=== PATIENT | male | born 1960 | race Caucasian/White ===

== ENCOUNTER → 2016-09-03 | Outpatient (CLI) | payer MEDICAID, OTHER ==
--- NOTE | 2016-09-03 13:19 | PFTRPT ---
PULMONARY FUNCTION REPORT ORDERING PROVIDER: Justino Hood M.D. DATE OF SERVICE: 09/03/16 SPIROMETRY: Pre and post bronchodilator study of excellent technical quality. The forced vital capacity is reduced. The FEV1 is out of proportion. The obstructive index is, therefore, reduced. FLOW VOLUME LOOP: The expiratory limb of the flow volume loop is consistent with significant flow rate limitation. No additional bronchodilator response is identified. LUNG VOLUMES: The total lung capacity is markedly elevated. The residual volume is consistent with air trapping. DIFFUSION CAPACITY: The diffusion capacity is severely reduced and does not correct for alveolar volume. HEMOGLOBIN: The hemoglobin is acceptable at 16.4. AIRWAY MECHANICS: Airways resistance is markedly elevated with a concomitant decrease in airway conductance. IMPRESSION: Severe obstructive ventilatory impairment with underlying air trapping and emphysema is suspected. Please correlate clinically. MTDD
== END ==
LOC: M CARPUL 12:36
PROVIDERS: ATTEND Internal Medicine Pulmonary Disease
DX: J44.9 Chronic obstructive pulmonary disease, unspecified (principal)

== ENCOUNTER → 2016-10-14 | Outpatient (REF) | payer OTHER | LOC: M LAB REF 17:13 | PROVIDERS: ATTEND Nurse Practitioner Adult Health | DX: J44.9 Chronic obstructive pulmonary disease, unspecified (principal) ==

== ENCOUNTER → 2016-10-30 | Outpatient (REF) | payer OTHER | LOC: M LAB REF 12:57 | PROVIDERS: ATTEND Nurse Practitioner Adult Health | DX: J44.1 Chronic obstructive pulmonary disease with (acute) exacerbation (principal) ==

== ENCOUNTER → 2017-04-16 | Outpatient (CLI) | payer OTHER ==
--- NOTE | 2017-04-16 10:29 | REP ---
CAROTID ULTRASOUND: Real-time ultrasound evaluation and duplex Doppler interrogation of the extracranial carotid vasculature is performed. There is mild plaquing and narrowing in both carotid bulbs extending into the internal and external carotid arteries. Luminal narrowing is less than 50%. There is no evidence of hemodynamically significant stenosis of either internal carotid artery. Normal flow velocities are seen. The vertebral arteries demonstrate normal direction of flow. RIGHT LEFT Peak systolic velocity ICA 81 cm/s 39 cm/s End diastolic velocity ICA 26.4 cm/s 26.9 cm/s Peak systolic velocity CCA 89.7 cm/s 111.4 cm/s Peak systolic velocity ECA 95 cm/s 59.8 cm/s ICA/CCA ratio 0.9 0.4 IMPRESSION: Bilateral luminal narrowing of the internal carotid arteries less than 50%. No evidence of hemodynamically significant stenosis. Signed by Bhavik Vasquez MD 04/16/2017 10:21 A
--- NOTE | 2017-04-16 11:07 | REP ---
ULTRASOUND OF ABDOMINAL AORTA: Real-time sonographic evaluation of the abdominal aorta performed. There is no sonographic evidence of abdominal aortic aneurysm. Mild atherosclerotic plaquing is present. Maximum AP diameter of the abdominal aorta proximally is 2.1 cm, mid aspect 1.9 cm and distally 1.5 cm. Right common iliac artery measures 9 x 7 mm, with the same measurements for the left common iliac artery. IMPRESSION: No sonographic evidence of abdominal aortic aneurysm. Signed by Bhavik Vasquez MD 04/16/2017 01:53 P
--- NOTE | 2017-04-16 11:53 | REP ---
Clinical: Abdominal aortic aneurysm and coronary artery disease. Technique: PA and lateral. Comparison: None. Findings: Mediastinum and cardiac silhouette are within normal limits. Lung ardon demonstrate chronic-appearing interstitial changes and mild emphysematous disease. No focal consolidation, obvious effusion or pneumothorax. Skeletal structures are intact. Impression: Chronic-appearing changes. No acute cardiopulmonary process. Signed by Mikhail Hendrickson MD 04/16/2017 11:44 A
--- NOTE | 2017-04-16 13:28 | REP ---
LUNG DIFFERENTIAL VENTILATION AND PERFUSION SCAN: Following the intravenous administration of 1.1 millicuries technetium 99m tagged MAA inhalation of 2 mg technetium 99m DTPA aerosol images of the lungs are obtained in the anterior and posterior projections. Extensive matching ventilation and perfusion defects are seen in the lower lung zones bilaterally. Differential counts are obtained in the upper, middle and lower thirds of each lung. Mean perfusion of the left lung is 44% and right lung 55.3%. Mean ventilation of the left lung is 42.2% and right lung 57.8%. Signed by Bhavik Vasquez MD 04/16/2017 01:56 P
== END ==
LOC: M RAD 08:53
DX: R94.2 Abnormal results of pulmonary function studies (principal); J44.9 Chronic obstructive pulmonary disease, unspecified; I65.29 Occlusion and stenosis of unspecified carotid artery

== ENCOUNTER 2017-10-03 08:06 | Outpatient (RCR) | payer OTHER | END 2017-10-23 | LOC: M CR 08:06 → M PR 10-15 10:44 | DX: Z51.89 Encounter for other specified aftercare (principal); J44.9 Chronic obstructive pulmonary disease, unspecified ==

== ENCOUNTER → 2017-11-07 | Outpatient (REF) | payer OTHER | LOC: M LAB REF 12:54 | DX: E88.01 Alpha-1-antitrypsin deficiency (principal) ==

== ENCOUNTER 2017-12-23 18:36 | Emergency (ER) | payer OTHER ==
[2017-12-23] MEDS: TETRACAINE 0.5% OPHTH SOLN 4ML OU (19:53)
[2017-12-23 20:57] LABS: BASO % 0.1 % (0.0-1.0); EOS % 0.1 % (0.0-3.0); HEMATOCRIT 48.3 % (42.0-52.0); IMMATURE GRANULOCYTE % 0.4 % (0-3.0); LYMPH # 0.5 10^3/uL (1.5-4.5); MEAN CORPUSCULAR HEMOGLOBIN 34.2 pg (27.0-33.0); MEAN CORPUSCULAR HGB CONC 35.2 g/dl (32.0-36.5); MEAN CORPUSCULAR VOLUME 97.2 fl (80.0-96.0); MONO # 0.9 10^3/uL (0.0-0.8); MONO % 8.6 % (0.0-5.0); NEUTROPHILS # 8.6 10^3/uL (1.8-7.7); NEUTROPHILS % 85.8 % (36.0-66.0); PLATELET COUNT, AUTOMATED 214 10^3/uL (150-450); RED BLOOD COUNT 4.97 10^6/uL (4.30-6.10); RED CELL DISTRIBUTION WIDTH 14.1 % (11.5-14.5)
[2017-12-23 21:09] LABS: INR 1.13; PROTHROMBIN TIME 14.6 SECONDS (12.1-14.4)
[2017-12-23 21:10] LABS: PARTIAL THROMBOPLASTIN TIME 23.9 SECONDS (25.4-37.6)
[2017-12-23 21:17] LABS: ANION GAP 8 MEQ/L (8-16); BLOOD UREA NITROGEN 20 MG/DL (7-18); CARBON DIOXIDE LEVEL 31 MEQ/L (21-32); CHLORIDE LEVEL 103 MEQ/L (98-107); CREATININE FOR GFR 0.76 MG/DL (0.70-1.30); GLOMERULAR FILTRATION RATE > 60.0 (>56); GLUCOSE, FASTING 104 MG/DL (70-100); POTASSIUM SERUM 3.5 MEQ/L (3.5-5.1); SODIUM LEVEL 142 MEQ/L (136-145)
== END 2017-12-23 22:07 | disposition home or self-care (01) ==
LOC: M ED 18:36
DX: H53.8 Other visual disturbances (principal); E88.01 Alpha-1-antitrypsin deficiency; J44.9 Chronic obstructive pulmonary disease, unspecified; Z79.82 Long term (current) use of aspirin; Z79.899 Other long term (current) drug therapy; Z88.0 Allergy status to penicillin
CPT/HCPCS: 70450

== ENCOUNTER 2018-03-02 11:23 | Day surgery (SDC) | payer OTHER ==
[~2018-03-02 11:23] MED LIST: MIDAZOLAM INJ 2 MG/2 ML VIAL (J2250) As Ordered; PHENYLEPHRINE HCL 10 % OPHTH. SOL 5ML OS; fentaNYL 100 MCG/2 ML INJECTION (J3010) As Ordered
[2018-03-02] MEDS: CYCLOPENTOLATE 2% OPHTH SOLN 2ML BTL OS (12:15)
[2018-03-02] MEDS: PHENYLEPHRINE 2.5% OPHTH SOL 2ML OS (12:15)
[2018-03-02] MEDS: LIDOCAINE 3.5 % 1ML OPHTH TOPICAL GEL OU (12:15)
[2018-03-02] MEDS: OFLOXACIN 0.3 % (OCUFLOX) OPTH SOL 5ML OS (12:15)
[2018-03-02] MEDS: TROPICAMIDE 1% OPHTH SOLN 2ML OS (12:15)
[2018-03-02] MEDS: POVIDONE-IODINE 5% OPHTH PREP SOL 30ML As Ordered (13:30)
[2018-03-02] MEDS: TRYPAN BLUE 0.06 % 2.25 ML OPHTH SYR (VISIONBLUE) As Ordered ×2 (13:37→13:40)
[2018-03-02] MEDS: LIDOCAINE 1% SDV 5 ML VIAL As Ordered (13:37)
[2018-03-02] MEDS: HEALON DUET (HEALON 10MG/ML 0.55ML & HEALON ENDOCOAT 30MG/ML 0.85ML) As Ordered ×2 (13:42→13:43)
[2018-03-02] MEDS: MOXIFLOXACIN IN BSS 0.25MG/0.25ML INTRACAMERAL INJ (OR EYE ONLY)(J2280) As Ordered (13:43)
[2018-03-02] MEDS: BSS with VANC/TOB/EPI for EYE CASES IR (13:44)
[2018-03-02] MEDS: TRIAMCINOLONE PRES FR 40 MG/ML 1ML(TRIESENCE)(OR EYE ONLY)(J3300 PER 1MG) As Ordered (13:44)
[2018-03-02] MEDS: ACETYLCHOLINE OPHTH SOLN 1% 2ML (MIOCHOL-E) As Ordered (13:58)
== END 2018-03-02 14:42 | disposition home or self-care (01) ==
LOC: M SDC 11:23
DX: H25.9 Unspecified age-related cataract (principal); I10 Essential (primary) hypertension; J44.9 Chronic obstructive pulmonary disease, unspecified; Z79.52 Long term (current) use of systemic steroids; Z79.899 Other long term (current) drug therapy; Z88.0 Allergy status to penicillin; Z87.891 Personal history of nicotine dependence
CPT/HCPCS: 66984

== ENCOUNTER 2018-03-09 19:28 | Inpatient (IN) | payer OTHER ==
[2018-03-09 20:14] LABS: BASO % 0.2 % (0.0-1.0); EOS # 0.1 10^3/uL (0.0-0.50); EOS % 0.3 % (0.0-3.0); HEMATOCRIT 45.6 % (42.0-52.0); HEMOGLOBIN 16.6 g/dl (13.5-17.5); IMMATURE GRANULOCYTE % 0.4 % (0-3.0); LYMPH # 1.2 10^3/uL (1.5-4.5); LYMPH % 7.5 % (24.0-44.0); MEAN CORPUSCULAR HEMOGLOBIN 34.8 pg (27.0-33.0); MEAN CORPUSCULAR HGB CONC 36.4 g/dl (32.0-36.5); MEAN CORPUSCULAR VOLUME 95.6 fl (80.0-96.0); MONO # 1.9 10^3/uL (0.0-0.8); MONO % 11.8 % (0.0-5.0); NEUTROPHILS # 13.2 10^3/uL (1.8-7.7); NEUTROPHILS % 79.8 % (36.0-66.0); PLATELET COUNT, AUTOMATED 223 10^3/uL (150-450); RED BLOOD COUNT 4.77 10^6/uL (4.30-6.10); RED CELL DISTRIBUTION WIDTH 14.2 % (11.5-14.5); WHITE BLOOD COUNT 16.5 10^3/uL (4.0-10.0)
[2018-03-09 20:33] LABS: ANION GAP 12 MEQ/L (8-16); BLOOD UREA NITROGEN 28 MG/DL (7-18); CALCIUM LEVEL 9.3 MG/DL (8.5-10.1); CARBON DIOXIDE LEVEL 29 MEQ/L (21-32); CHLORIDE LEVEL 100 MEQ/L (98-107); CPK CREATINE PHOSPHOKINASE 85 U/L (39-308); CREATININE FOR GFR 0.84 MG/DL (0.70-1.30); GLOMERULAR FILTRATION RATE > 60.0 (>56); GLUCOSE, FASTING 103 MG/DL (70-100); MB/CK RELATIVE INDEX 1.76 (< OR =4); POTASSIUM SERUM 2.9 MEQ/L (3.5-5.1); SODIUM LEVEL 141 MEQ/L (136-145); TROPONIN I < 0.02 NG/ML (< 0.10)
[2018-03-09] MEDS: dexameTHASONE 20 MG/5 ML VIAL (J1100) IV (22:15)
[2018-03-09] MEDS: POTASSIUM CHLORIDE 10 MEQ SR TABLET PO (22:15)
[2018-03-09] MEDS: ALBUTEROL SULFATE 2.5 MG/0.5 ML INH NEB SOLN NEB (22:24)
[2018-03-09 22:47] LABS: ABG BASE EXCESS 2.8 (-2.0-2.0); ABG HCO3 26.2 MEQ/L (22.0-26.0); ABG O2 SATURATION 74.5 % (95.0-99.0); ABG PARTIAL PRESSURE CO2 36.8 mmHg (35.0-45.0); ABG STANDARD HCO3 26.3 MEQ/L (22.0-26.0); ABG TOTAL CO2 27.4 MEQ/L (22.0-29.0); ABG pH (ARTERIAL) 7.471 UNITS (7.350-7.450)
[2018-03-09 22:50] LABS: ABG PARTIAL PRESSURE O2 37.7 mmHg (75.0-100.0)
[2018-03-09] MEDS ORDERED: GLUCOSE 4 GM CHEW TABLET PO (23:30)
[2018-03-09] MEDS ORDERED: GLUCAGON FOR INJ 1 MG VIAL (J1610) SC (23:30)
[2018-03-09] MEDS ORDERED: ALBUTEROL SULFATE 2.5 MG/0.5 ML INH NEB SOLN NEB (23:30)
[2018-03-09] MEDS ORDERED: DEXTROSE 50% 50 ML SYRINGE IV (23:30)
[2018-03-09 23:41] LABS: INFLUENZA A AMPLIFICATION NEGATIVE (NEGATIVE); INFLUENZA B AMPLIFICATION NEGATIVE (NEGATIVE)
[2018-03-10] MEDS: POTASSIUM CHLORIDE 10 MEQ SR TABLET PO ×2 (01:00→01:13)
[2018-03-10 01:03] LABS: BEDSIDE GLUCOSE 142 MG/DL (70-105)
[2018-03-10] MEDS: ALPRAZolam 0.5 MG TAB PO ×3 (01:12→21:18)
[2018-03-10] MEDS: HumaLOG INSULIN (NovoLOG) PER UNIT SC ×4 (01:13→18:07)
[2018-03-10] MEDS: IPRATROPIUM 0.5MG/ALBUTEROL 2.5MG INH SOL UD 3ML (DUONEB)(J7620) NEB ×6 (04:08→20:00)
[2018-03-10] MEDS: HEPARIN SOD (PORCINE) 5000 UNITS/ML VIAL SC ×3 (05:38→21:18)
[2018-03-10] MEDS: LevoFLOXacin 500 MG TABLET PO (05:38)
[2018-03-10] MEDS: methylPREDNISolone INJ 40 MG/1 ML VIAL (J2920) IV ×2 (05:38→18:07)
[2018-03-10 05:39] LABS: HEMATOCRIT 41.4 % (42.0-52.0); MEAN CORPUSCULAR HEMOGLOBIN 34.8 pg (27.0-33.0); MEAN CORPUSCULAR HGB CONC 35.3 g/dl (32.0-36.5); MEAN CORPUSCULAR VOLUME 98.6 fl (80.0-96.0); PLATELET COUNT, AUTOMATED 187 10^3/uL (150-450); RED CELL DISTRIBUTION WIDTH 14.1 % (11.5-14.5); WHITE BLOOD COUNT 5.9 10^3/uL (4.0-10.0)
[2018-03-10 05:40] LABS: VENOUS BASE EXCESS 3.9 (-2.0-2.0); VENOUS HCO3 29.7 MEQ/L (23.0-27.0); VENOUS O2 SATURATION 88.6 % (60.0-80.0); VENOUS PARTIAL PRESSURE CO2 48.9 mmHg (38.0-50.0); VENOUS PARTIAL PRESSURE O2 55.7 mmHg (30.0-50.0); VENOUS PH 7.401 UNITS (7.330-7.430); VENOUS STANDARD HCO3 27.7 MEQ/L; VENOUS TOTAL CO2 31.2 MEQ/L (24.0-28.0)
[2018-03-10 05:43] LABS: HEMOGLOBIN 14.6 g/dl (13.5-17.5)
[2018-03-10 06:04] LABS: MAGNESIUM LEVEL 2.1 MG/DL (1.8-2.4)
[2018-03-10 06:13] LABS: ANION GAP 8 MEQ/L (8-16); BLOOD UREA NITROGEN 27 MG/DL (7-18); CALCIUM LEVEL 8.6 MG/DL (8.5-10.1); CARBON DIOXIDE LEVEL 31 MEQ/L (21-32); CHLORIDE LEVEL 102 MEQ/L (98-107); GLOMERULAR FILTRATION RATE > 60.0 (>56); GLUCOSE, FASTING 198 MG/DL (70-100); POTASSIUM SERUM 3.8 MEQ/L (3.5-5.1); SODIUM LEVEL 141 MEQ/L (136-145)
[2018-03-10] MEDS: ADVAIR HFA 230/21MCG INHALER INH ×2 (07:33→21:10)
[2018-03-10] MEDS: ASPIRIN 81 MG ENTERIC TAB PO (08:10)
[2018-03-10] MEDS ORDERED: SPIRIVA RESPIMAT NEB (09:00)
[2018-03-10] MEDS ORDERED: DALIRESP 500 MCG PO (09:00)
[2018-03-10 11:56] LABS: BEDSIDE GLUCOSE 193 MG/DL (70-105)
[2018-03-10 16:42] LABS: BEDSIDE GLUCOSE 123 MG/DL (70-105)
[2018-03-11 00:13] LABS: BEDSIDE GLUCOSE 150 MG/DL (70-105)
[2018-03-11] MEDS: IPRATROPIUM 0.5MG/ALBUTEROL 2.5MG INH SOL UD 3ML (DUONEB)(J7620) NEB ×6 (00:26→20:00)
[2018-03-11] MEDS: HumaLOG INSULIN (NovoLOG) PER UNIT SC ×5 (00:42→21:00)
[2018-03-11 05:36] LABS: BEDSIDE GLUCOSE 135 MG/DL (70-105)
[2018-03-11] MEDS: LevoFLOXacin 500 MG TABLET PO (05:46)
[2018-03-11] MEDS: methylPREDNISolone INJ 40 MG/1 ML VIAL (J2920) IV ×2 (05:46→18:09)
[2018-03-11] MEDS: HEPARIN SOD (PORCINE) 5000 UNITS/ML VIAL SC ×3 (05:47→21:04)
[2018-03-11 05:58] LABS: HEMATOCRIT 37.3 % (42.0-52.0); HEMOGLOBIN 13.2 g/dl (13.5-17.5); MEAN CORPUSCULAR HEMOGLOBIN 35.3 pg (27.0-33.0); MEAN CORPUSCULAR HGB CONC 35.4 g/dl (32.0-36.5); MEAN CORPUSCULAR VOLUME 99.7 fl (80.0-96.0); PLATELET COUNT, AUTOMATED 185 10^3/uL (150-450); RED BLOOD COUNT 3.74 10^6/uL (4.30-6.10); RED CELL DISTRIBUTION WIDTH 14.2 % (11.5-14.5); WHITE BLOOD COUNT 11.7 10^3/uL (4.0-10.0)
[2018-03-11 06:23] LABS: ANION GAP 7 MEQ/L (8-16); BLOOD UREA NITROGEN 30 MG/DL (7-18); CARBON DIOXIDE LEVEL 30 MEQ/L (21-32); CHLORIDE LEVEL 103 MEQ/L (98-107); CREATININE FOR GFR 0.76 MG/DL (0.70-1.30); GLOMERULAR FILTRATION RATE > 60.0 (>56); GLUCOSE, FASTING 118 MG/DL (70-100); POTASSIUM SERUM 3.5 MEQ/L (3.5-5.1); SODIUM LEVEL 140 MEQ/L (136-145)
[2018-03-11] MEDS ORDERED: ISOVUE-370 76% 100ML VIAL (Q9967) As Ordered (08:03)
[2018-03-11 08:39] LABS: C REACTIVE PROTEIN QUANTITATIV 2.37 MG/DL (0.00-0.30)
[2018-03-11] MEDS: ASPIRIN 81 MG ENTERIC TAB PO (08:51)
[2018-03-11] MEDS: ALPRAZolam 0.5 MG TAB PO ×2 (08:51→21:03)
[2018-03-11] MEDS: POTASSIUM CHLORIDE 10 MEQ SR TABLET PO (08:51)
[2018-03-11] MEDS: ADVAIR HFA 230/21MCG INHALER INH ×2 (09:33→21:19)
[2018-03-11 11:45] LABS: BEDSIDE GLUCOSE 163 MG/DL (70-105)
[2018-03-11 17:44] LABS: BEDSIDE GLUCOSE 105 MG/DL (70-105)
[2018-03-11 21:11] LABS: BEDSIDE GLUCOSE 121 MG/DL (70-105)
[2018-03-12] MEDS: IPRATROPIUM 0.5MG/ALBUTEROL 2.5MG INH SOL UD 3ML (DUONEB)(J7620) NEB ×7 (03:23→23:00)
[2018-03-12] MEDS: methylPREDNISolone INJ 40 MG/1 ML VIAL (J2920) IV (05:06)
[2018-03-12] MEDS: HEPARIN SOD (PORCINE) 5000 UNITS/ML VIAL SC ×3 (05:07→20:58)
[2018-03-12] MEDS: LevoFLOXacin 500 MG TABLET PO (05:07)
[2018-03-12 05:17] LABS: HEMATOCRIT 39.1 % (42.0-52.0); HEMOGLOBIN 13.2 g/dl (13.5-17.5); MEAN CORPUSCULAR HEMOGLOBIN 34.6 pg (27.0-33.0); MEAN CORPUSCULAR HGB CONC 33.8 g/dl (32.0-36.5); MEAN CORPUSCULAR VOLUME 102.6 fl (80.0-96.0); PLATELET COUNT, AUTOMATED 182 10^3/uL (150-450); RED BLOOD COUNT 3.81 10^6/uL (4.30-6.10); RED CELL DISTRIBUTION WIDTH 14.5 % (11.5-14.5); WHITE BLOOD COUNT 10.8 10^3/uL (4.0-10.0)
[2018-03-12 05:45] LABS: ANION GAP 7 MEQ/L (8-16); BLOOD UREA NITROGEN 25 MG/DL (7-18); C REACTIVE PROTEIN QUANTITATIV 1.05 MG/DL (0.00-0.30); CALCIUM LEVEL 8.3 MG/DL (8.5-10.1); CARBON DIOXIDE LEVEL 28 MEQ/L (21-32); CHLORIDE LEVEL 107 MEQ/L (98-107); CREATININE FOR GFR 0.75 MG/DL (0.70-1.30); GLOMERULAR FILTRATION RATE > 60.0 (>56); GLUCOSE, FASTING 120 MG/DL (70-100); SODIUM LEVEL 142 MEQ/L (136-145)
[2018-03-12] MEDS: ADVAIR HFA 230/21MCG INHALER INH ×2 (07:49→19:54)
[2018-03-12] MEDS: TIOTROPIUM INHALER/CAPSULE (SPIRIVA) INH ×2 (07:50→08:00)
[2018-03-12] MEDS: ALPRAZolam 0.5 MG TAB PO ×2 (08:30→20:57)
[2018-03-12] MEDS: ASPIRIN 81 MG ENTERIC TAB PO (08:30)
[2018-03-12] MEDS: HumaLOG INSULIN (NovoLOG) PER UNIT SC (08:31)
[2018-03-12] MEDS ORDERED: hydroCHLOROthiazide 25 MG TAB PO (09:00)
[2018-03-13] MEDS: HEPARIN SOD (PORCINE) 5000 UNITS/ML VIAL SC (05:57)
[2018-03-13] MEDS: LevoFLOXacin 500 MG TABLET PO (05:57)
[2018-03-13 06:27] LABS: HEMATOCRIT 38.9 % (42.0-52.0); HEMOGLOBIN 13.2 g/dl (13.5-17.5); MEAN CORPUSCULAR HEMOGLOBIN 35.1 pg (27.0-33.0); MEAN CORPUSCULAR HGB CONC 33.9 g/dl (32.0-36.5); MEAN CORPUSCULAR VOLUME 103.5 fl (80.0-96.0); PLATELET COUNT, AUTOMATED 179 10^3/uL (150-450); RED BLOOD COUNT 3.76 10^6/uL (4.30-6.10); RED CELL DISTRIBUTION WIDTH 14.4 % (11.5-14.5); WHITE BLOOD COUNT 7.4 10^3/uL (4.0-10.0)
[2018-03-13 06:33] LABS: ANION GAP 6 MEQ/L (8-16); BLOOD UREA NITROGEN 22 MG/DL (7-18); C REACTIVE PROTEIN QUANTITATIV 0.44 MG/DL (0.00-0.30); CALCIUM LEVEL 7.5 MG/DL (8.5-10.1); CARBON DIOXIDE LEVEL 30 MEQ/L (21-32); CHLORIDE LEVEL 107 MEQ/L (98-107); CREATININE FOR GFR 0.69 MG/DL (0.70-1.30); GLOMERULAR FILTRATION RATE > 60.0 (>56); GLUCOSE, FASTING 73 MG/DL (70-100); POTASSIUM SERUM 3.9 MEQ/L (3.5-5.1); SODIUM LEVEL 143 MEQ/L (136-145)
[2018-03-13] MEDS: IPRATROPIUM 0.5MG/ALBUTEROL 2.5MG INH SOL UD 3ML (DUONEB)(J7620) NEB ×2 (07:49→12:00)
[2018-03-13] MEDS: TIOTROPIUM INHALER/CAPSULE (SPIRIVA) INH (07:57)
[2018-03-13] MEDS: ADVAIR HFA 230/21MCG INHALER INH (07:57)
[2018-03-13] MEDS: predniSONE 20 MG TAB PO (08:32)
[2018-03-13] MEDS: ALPRAZolam 0.5 MG TAB PO (08:32)
[2018-03-13] MEDS: ASPIRIN 81 MG ENTERIC TAB PO (08:32)
== END 2018-03-13 13:22 | disposition home health service (06) | DRG 133 ==
LOC: M MSPAV 03-12 16:34 → M PCU 03-10 00:39 → M ED 19:28 → M ED INP 23:16
DX: J96.21 Acute and chronic respiratory failure with hypoxia (principal); E88.01 Alpha-1-antitrypsin deficiency; Z99.81 Dependence on supplemental oxygen; J44.9 Chronic obstructive pulmonary disease, unspecified; J06.9 Acute upper respiratory infection, unspecified; I10 Essential (primary) hypertension; F41.9 Anxiety disorder, unspecified; E87.6 Hypokalemia; Z79.82 Long term (current) use of aspirin; Z79.52 Long term (current) use of systemic steroids; Z79.899 Other long term (current) drug therapy; Z88.8 Allergy status to other drugs, medicaments and biological substances; Z88.0 Allergy status to penicillin; Z87.891 Personal history of nicotine dependence

== ENCOUNTER → 2018-03-09 | Outpatient (CLI) | payer OTHER | LOC: M LRY 17:55 | DX: R06.02 Shortness of breath (principal) | CPT/HCPCS: 71046 ==

== ENCOUNTER 2018-04-27 08:50 | Day surgery (SDC) | payer OTHER ==
[~2018-04-27 08:50] MED LIST changes: +ACETAMINOPHEN 325 MG TAB PO; -MIDAZOLAM INJ 2 MG/2 ML VIAL (J2250) As Ordered; +PHENYLEPHRINE HCL 10 % OPHTH. SOL 5ML OD; -PHENYLEPHRINE HCL 10 % OPHTH. SOL 5ML OS; -fentaNYL 100 MCG/2 ML INJECTION (J3010) As Ordered
[2018-04-27] MEDS ORDERED: TROPICAMIDE 1% OPHTH SOLN 2ML As Ordered (09:41)
[2018-04-27] MEDS ORDERED: OFLOXACIN 0.3 % (OCUFLOX) OPTH SOL 5ML As Ordered (09:41)
[2018-04-27] MEDS ORDERED: PHENYLEPHRINE 2.5% OPHTH SOL 2ML As Ordered (09:41)
[2018-04-27] MEDS ORDERED: CYCLOPENTOLATE 2% OPHTH SOLN 2ML BTL As Ordered (09:41)
[2018-04-27] MEDS: CYCLOPENTOLATE 2% OPHTH SOLN 2ML BTL OD (10:08)
[2018-04-27] MEDS: LIDOCAINE 3.5 % 1ML OPHTH TOPICAL GEL OU (10:08)
[2018-04-27] MEDS: TROPICAMIDE 1% OPHTH SOLN 2ML OD (10:08)
[2018-04-27] MEDS: PHENYLEPHRINE 2.5% OPHTH SOL 2ML OD (10:08)
[2018-04-27] MEDS: OFLOXACIN 0.3 % (OCUFLOX) OPTH SOL 5ML OD (10:08)
[2018-04-27] MEDS: POVIDONE-IODINE 5% OPHTH PREP SOL 30ML As Ordered (12:55)
[2018-04-27] MEDS: LIDOCAINE 1% SDV 5 ML VIAL As Ordered (12:58)
[2018-04-27] MEDS: TRIAMCINOLONE PRES FR 40 MG/ML 1ML(TRIESENCE)(OR EYE ONLY)(J3300 PER 1MG) As Ordered (12:58)
[2018-04-27] MEDS ORDERED: fentaNYL 100 MCG/2 ML INJECTION (J3010) As Ordered (12:59)
[2018-04-27] MEDS ORDERED: MIDAZOLAM INJ 2 MG/2 ML VIAL (J2250) As Ordered (12:59)
[2018-04-27] MEDS: BSS with VANC/TOB/EPI for EYE CASES IR (13:00)
[2018-04-27] MEDS: HEALON DUET PRO(HEALON 10MG/ML 0.55ML & HEALON ENDOCOAT 30MG/ML 0.85ML) As Ordered (13:04)
[2018-04-27] MEDS: MOXIFLOXACIN IN BSS 0.25MG/0.25ML INTRACAMERAL INJ (OR EYE ONLY)(J2280) As Ordered (13:04)
[2018-04-27] MEDS ORDERED: TRIMETHOBENZAMIDE 300 MG CAP PO (13:30)
[2018-04-27] MEDS: AcetaZOLAMIDE 500 MG ER CAP PO (13:40)
== END 2018-04-27 13:55 | disposition home or self-care (01) ==
LOC: M SDC 08:50
DX: H26.9 Unspecified cataract (principal); I10 Essential (primary) hypertension; J47.9 Bronchiectasis, uncomplicated; J44.9 Chronic obstructive pulmonary disease, unspecified; R06.02 Shortness of breath; J45.909 Unspecified asthma, uncomplicated; Z88.0 Allergy status to penicillin; Z79.899 Other long term (current) drug therapy; Z79.51 Long term (current) use of inhaled steroids; Z98.42 Cataract extraction status, left eye; Z87.891 Personal history of nicotine dependence
CPT/HCPCS: 66984

== ENCOUNTER 2018-07-05 13:43 | Inpatient (IN) | payer OTHER ==
[~2018-07-05] VITALS: Ht 175.3 cm; Wt 73.6 kg
[~2018-07-05 13:43] MED LIST changes: -ACETAMINOPHEN 325 MG TAB PO; +ADV500INH INH; +ALBU1TAB4 PO; +ALBU2TA PO; +ALBU83IN INH; +ALPR0.5T3 PO; +ASPI1TAB PO; +ASPI81TAEC PO; +AZIT-12 PO; +BREO1INH INH; +CAPT1TAB17 PO; +COMBAER6 INH; +DALI1TAB2 PO; +DILT180C74 PO; +HYDR25TAB PO; +LEVA1TAB2 PO; -PHENYLEPHRINE HCL 10 % OPHTH. SOL 5ML OD; +POTA1TAB14 PO; +PRED10TA2 PO; +PRED20TA PO; +PRED5EL PO; +SALI0.652; +SPIR12.9 INH; +SPIR1CAP INH; +TIOT18INH INH; +VENTAER INH; +ZYRT10CA PO; +[UNRECOGNIZED DRUG - CODE] IV; +[UNRECOGNIZED DRUG - CODE] PO
[2018-07-05] MEDS ORDERED: methylPREDNISolone INJ 125 MG/2 ML VIAL (J2930) As Ordered ONE (14:07)
[2018-07-05] MEDS ORDERED: IPRATROPIUM 0.5MG/ALBUTEROL 2.5MG INH SOL UD 3ML (DUONEB)(J7620) NEB ONE (14:15)
[2018-07-05] MEDS ORDERED: IPRATROPIUM 0.5MG/ALBUTEROL 2.5MG INH SOL UD 3ML (DUONEB)(J7620) NEB PRN (14:15)
[2018-07-05] MEDS ORDERED: ALBUTEROL SULFATE 2.5 MG/0.5 ML INH NEB SOLN INH ONE (14:15)
[2018-07-05] MEDS ORDERED: methylPREDNISolone INJ 125 MG/2 ML VIAL (J2930) IV ONE ×2 (14:15)
[2018-07-05 14:22] LABS: BASO % 0.2 % (0.0-1.0); HEMATOCRIT 45.4 % (42.0-52.0); HEMOGLOBIN 15.7 g/dl (13.5-17.5); LYMPH # 1.2 10^3/uL (1.5-4.5); LYMPH % 11.4 % (24.0-44.0); MEAN CORPUSCULAR HEMOGLOBIN 35.4 pg (27.0-33.0); MEAN CORPUSCULAR HGB CONC 34.6 g/dl (32.0-36.5); MEAN CORPUSCULAR VOLUME 102.5 fl (80.0-96.0); MONO # 0.9 10^3/uL (0.0-0.8); MONO % 8.6 % (0.0-5.0); NEUTROPHILS # 8.3 10^3/uL (1.8-7.7); NEUTROPHILS % 79.4 % (36.0-66.0); PLATELET COUNT, AUTOMATED 156 10^3/uL (150-450); RED BLOOD COUNT 4.43 10^6/uL (4.30-6.10); WHITE BLOOD COUNT 10.5 10^3/uL (4.0-10.0)
[2018-07-05 14:22] LABS: VENOUS BASE EXCESS -0.3 (-2.0-2.0); VENOUS HCO3 22.3 MEQ/L (23.0-27.0); VENOUS O2 SATURATION 89.7 % (60.0-80.0); VENOUS PARTIAL PRESSURE CO2 31.6 mmHg (38.0-50.0); VENOUS PARTIAL PRESSURE O2 57.8 mmHg (30.0-50.0); VENOUS PH 7.467 UNITS (7.330-7.430); VENOUS TOTAL CO2 23.3 MEQ/L (24.0-28.0)
[2018-07-05 14:32] LABS: ABG BASE EXCESS 4.7 (-2.0-2.0); ABG HCO3 27.8 MEQ/L (22.0-26.0); ABG O2 SATURATION 96.5 % (95.0-99.0); ABG PARTIAL PRESSURE CO2 36.5 mmHg (35.0-45.0); ABG PARTIAL PRESSURE O2 78.8 mmHg (75.0-100.0); ABG STANDARD HCO3 28.7 MEQ/L (22.0-26.0); ABG TOTAL CO2 28.9 MEQ/L (22.0-29.0)
[2018-07-05 15:00] LABS: ALBUMIN 3.9 GM/DL (3.2-5.2); ALT/SGPT 92 U/L (12-78); BILIRUBIN,DIRECT 0.2 MG/DL (0.0-0.2); BILIRUBIN,TOTAL 0.9 MG/DL (0.2-1.0); BLOOD UREA NITROGEN 19 MG/DL (7-18); CALCIUM LEVEL 8.6 MG/DL (8.5-10.1); CARBON DIOXIDE LEVEL 27 MEQ/L (21-32); CHLORIDE LEVEL 103 MEQ/L (98-107); CPK CREATINE PHOSPHOKINASE 217 U/L (39-308); CREATININE FOR GFR 0.97 MG/DL (0.70-1.30); GLOMERULAR FILTRATION RATE > 60.0 (>56); GLUCOSE, FASTING 111 MG/DL (70-100); MB/CK RELATIVE INDEX 0.78 (< OR =4); NT-PRO BNP 160 PG/ML (<125); POTASSIUM SERUM 4.8 MEQ/L (3.5-5.1); SODIUM LEVEL 139 MEQ/L (136-145); THYROXINE (T4) 13.3 UG/DL (4.5-12.0); TOTAL PROTEIN 6.8 GM/DL (6.4-8.2); TROPONIN I < 0.02 NG/ML (< 0.10)
[2018-07-05] MEDS ORDERED: NS 1,000 ML IV ONE (15:30)
[2018-07-05] MEDS ORDERED: CAPT1TAB17 PO (16:01)
[2018-07-05] MEDS ORDERED: FLON1SPR NARES (16:01)
[2018-07-05] MEDS ORDERED: SPIR12.9 INH (16:01)
[2018-07-05] MEDS ORDERED: POTA1TAB23 PO (16:01)
[2018-07-05] MEDS ORDERED: OYST1TAB5 PO (16:01)
[2018-07-05] MEDS ORDERED: VITA200038 PO (16:01)
[2018-07-05] MEDS ORDERED: BISACODYL 5 MG TAB PO PRN (16:15)
[2018-07-05] MEDS ORDERED: ACETAMINOPHEN TAB 650MG DOSE (2X325MG) PO PRN (16:15)
[2018-07-05] MEDS ORDERED: NORCO, ANEXSIA 5/325MG TABLET (HYDROcodone/ACETAMINOPHEN) PO PRN (16:15)
[2018-07-05] MEDS ORDERED: PERCOCET 5MG/325MG TAB PO PRN (16:15)
[2018-07-05] MEDS: PANTOPRAZOLE 40MG TAB (PROTONIX) PO SCH (16:59)
[2018-07-05] MEDS ORDERED: IPRATROPIUM 0.02% SOLN 0.5MG/2.5 ML NEB INH PRN (17:30)
--- NOTE | 2018-07-05 17:47 | HPEPDOC ---
[facility] Medical History & Physical Date of Admission Jul 05, 2018 History and Physical CHIEF COMPLAINT: Progressively worsening shortness of breath with productive cough. HISTORY OF PRESENT ILLNESS (HPI): The patient is a 57-year-old male with a s ignificant past medical history of advanced emphysema, steroid and oxygen dependent 3 liters nasal cannula, anxiety, hypertension. His emphysema is secondary to alpha 1 Antitrypsin deficiency, he is on Aralast therapy every week, administered by nursing presenting to his home. He presents to the e mergedcy room with progressively worsening shortness of breath, cough of clear productive sputum that started last night. He denies any abdominal pain, constipation, diarrhea, urinary symptoms, fever chills, or chest pain. On last admission he did well with Vapotherm O2 supplement and was placed back on it this time in the ed on 40% FIO2 , saturating at 90%. REVIEW OF SYSTEMS: All 14 points ROS is negative except what's stated in HPI PHYSICAL EXAMINATION: GEN: mild resp distress on supplement oxygen, productive cough HEENT : no lymphadenopathy, PERRLA , no oropharyngeal erythema or exudates CVS: Normal S1/s2, no murmurs, rubs or gallops, RESP: b/l rhonchi Abd: soft, nontender, nondistended, + BS MSK: full ROM, 5/5 strength in all extremities Integumentary: no rash or bruises Neuro: AOAx3, no focal deficit psych: normal mood, good judgement and cooperative PAST MEDICAL HISTORY: See HPI. PAST SURGICAL HISTORY: He has had shoulder surgery. HOME MEDICATIONS: see below ALLERGIES: PENICILLIN. SOCIAL HISTORY: He is a former smoker, denies alcohol or illicit drug use. FAMILY HISTORY: Diabetes and heart disease. Labs - see below Images - cxr no acute disease - copd Assessment and plan COPD exacerbation c/w iv steroids/methylprednisone 40mg q6h azithromycin 500mg iv x3 days duoneb q4h valdez prn atrovent q2h for sob f/u sputum cx c/w O2 supplement keep O2 sat >90 f/u resp panel c/w home meds pulm consult dvt ppx gi ppx full code , from home Vital Signs Vital Signs Date Time Temp Pulse Resp B/P (MAP) Pulse Ox O2 Delivery O2 Flow Rate FiO2 07/05/18 16:45 84 19 125/75 (92) 90 Comfort Flow 07/05/18 14:39 20.0 40 07/05/18 13:44 99.9 Laboratory Data Labs 24H Laboratory Tests 2 07/05/18 14:10: Immature Granulocyte % (Auto) 0.4, White Blood Count 10.5H, Red Blood Count 4.43, Hemoglobin 15.7, Hematocrit 45.4, Mean Corpuscular Volume 102.5H, Mean Corpuscular Hemoglobin 35.4H, Mean Corpuscular Hemoglobin Concent 34.6, Red Cell Distribution Width 14.2, Platelet Count 156, Neutrophils (%) (Auto) 79.4H, Lymphocytes (%) (Auto) 11.4L, Monocytes (%) (Auto) 8.6H, Eosinophils (%) (Auto) 0.0, Basophils (%) (Auto) 0.2, Neutrophils # (Auto) 8.3H, Lymphocytes # (Auto) 1.2L, Monocytes # (Auto) 0.9H, Eosinophils # (Auto) 0.0, Basophils # (Auto) 0.0, Nucleated Red Blood Cells % (auto) 0.0, Blood Gas Bicarbonate Standard 28.7H, Arterial Blood pH 7.500H, Arterial Blood Partial Pressure CO2 36.5, Arterial Blood Partial Pressure O2 78.8, Arterial Blood Total CO2 28.9, Arterial Blood HCO3 27.8H, Arterial Blood Base Excess 4.7H, Arterial Blood Oxygen Saturation 96.5, Anion Gap 9, Glomerular Filtration Rate > 60.0, Lactic Acid Level 2.9*H, Calcium Level 8.6, Aspartate Amino Transf (AST/SGOT) 80H, Alanine Mata otransferase (ALT/SGPT) 92H, Alkaline Phosphatase 133H, Total Bilirubin 0.9, Direct Bilirubin 0.2, Total Creatine Kinase 217, Creatine Kinase MB 2.0, Creatine Kinase MB Relative Index 0.78, Troponin I < 0.02, QW-Thd-O-Type Natriuretic Peptide 160H, Total Protein 6.8, Albumin 3.9, Albumin/Globulin Ratio 1.34, Thyroid Stimulating Hormone (TSH) 0.280L, Thyroxine (T4) 13.3H 07/05/18 14:11: Blood Gas Bicarbonate Standard 24.0, Venous Blood pH 7.467H, Venous Blood Partial Pressure CO2 31.6L, Venous Blood Partial Pressure O2 57.8H, Venous Blood Total Carbon Dioxide 23.3L, Venous Blood HCO3 22.3L, Venous Blood Oxygen Saturation 89.7H, Venous Blood Base Excess -0.3 CBC/BMP Laboratory Tests 07/05/18 14:10 Red Blood Count 4.43, Mean Corpuscular Volume 102.5 H, Mean Corpuscular Hemoglobin 35.4 H, Mean Corpuscular Hemoglobin Concent 34.6, Red Cell Distributi on Width 14.2, Neutrophils (%) (Auto) 79.4 H, Lymphocytes (%) (Auto) 11.4 L, Monocytes (%) (Auto) 8.6 H, Eosinophils (%) (Auto) 0.0, Basophils (%) (Auto) 0.2, Neutrophils # (Auto) 8.3 H, Lymphocytes # (Auto) 1.2 L, Monocytes # (Auto) 0.9 H, Eosinophils # (Auto) 0.0, Basophils # (Auto) 0.0 Microbiology Microbiology 07/05/18 Blood Culture, Received Pending 07/05/18 Respiratory Virus Panel (PCR) ([facility]URIE) - Final, Complete Influenza A H1-2009 Home Medications Scheduled (Aralast Service Assistant) 1,000 Mg Inj, 1,000 MG IV QWEEK TAKES ON THURSDAYS (Oyster Shell Calcium/D3 500-400 mg-Unit) 1 Tab Tab, 1 TAB PO DAILY Albuterol Sulfate (Albuterol Sulfate) 2.5 Mg/3 Ml Nebu, 2.5 MG INH 6XD Albuterol Sulfate (Albuterol Sulfate) 2 Mg Tab, 2 MG PO BID Albuterol/Ipratropium (Combivent Respimat 20-100 Mcg/Act) 1 Aer Aer, 1 PUFF INH QID Alprazolam (Alprazolam) 0.5 Mg Tab, 0.5 MG PO BID Aspirin (Aspirin EC) 81 Mg Tabec, 81 MG PO DAILY Azithromycin (Azithromycin) 250 Mg Tab, 250 MG PO DAILY Captopril (Captopril) 25 Mg Tab, 25 MG PO BID Cetirizine HCl (Zyrtec Allergy) 10 Mg Cap, 10 MG PO DAILY Cholecalciferol (Vitamin D-3) 2,000 Unit Tab, 2,000 UNIT PO DAILY Fluticasone Propionate (Flonase Allergy Relief) 50 Mcg/Act Spr, 1 SPRAY NARES TID Fluticasone/Vilanterol (Breo Ellipta 100-25 Mcg/INH) 1 Inh Inh, 1 PUFF INH DAILY Hydrochlorothiazide (Hydrochlorothiazide) 25 Mg Tab, 25 MG PO DAILY Potassium Chloride (Potassium Chloride ER) 10 Meq Tab, 20 MEQ PO BID Prednisone (Prednisone) 10 Mg Tab, 10 MG PO Q2D ALTERNATES WITH 20MG Prednisone (Prednisone) 20 Mg Tab, 20 MG PO Q2D ALTERNATES WITH 10MG Roflumilast (Daliresp) 500 Mcg Tab, 500 MCG PO DAILY Sodium Chloride (Saline Mist) 0.65 % Spr, 2 SPRAY NA QID Tiotropium [place] Monohydrate (Spiriva Respimat) 2.5 Mcg/Act Spr, 2 INHALATION INH BID Scheduled PRN Albuterol Sulfate (Ventolin Hfa) 108 Mcg/Act Aer, 2 PUFFS INH Q4H PRN for SHORTNESS OF BREATH Allergies Coded Allergies: Penicillins (Verified Allergy, Intermediate, hives, 04/20/18) SHAINA DE LEON MD Jul 05, 2018 17:47
[2018-07-05] MEDS ORDERED: NS 250 ML IV ONE (19:15)
--- NOTE | 2018-07-05 19:52 | ECGEPIP ---
Stationary ECG Study [facility] - ED Test Date: 2018-07-05 Pat Name: DREW LEIVA Department: Room: - Gender: M Ship Mate: REJI : 1960 Requested By: Damian Peñaloza Order Number: [id number] Reading MD: Damian Peñaloza Measurements Intervals [place] Rate: 98 P: 83 VT: 148 QRS: -78 QRSD: 98 T: 70 QT: 345 QTc: 441 Interpretive Statements SINUS RHYTHM WITH FREQUENT VENTRICULAR PREMATURE COMPLEXES LEFT ANTERIOR FASCICULAR BLOCK NONSPECIFIC ST T WAVE CHANGES BASELINE ARTIFACT MAY AFFECT READING LAD DELAYED R WAVE PROGRESSION 03/09/18 SIMILAR Electronically Signed On 07-05-2018 19:52:35 EST by Damian Peñaloza
[2018-07-05] MEDS ORDERED: VANCOMYCIN HCL 1,000 MG, VIAL MATE ADAPTER 1 EACH in D5W 250 ML IV ONE (20:00)
[2018-07-05] MEDS: NS 1,000 ML IV SCH (20:26)
[2018-07-05] MEDS: ALPRAZolam 0.5 MG TAB PO SCH (20:27)
[2018-07-05] MEDS: HEPARIN SOD (PORCINE) 5000 UNITS/ML VIAL SC SCH (20:27)
[2018-07-05] MEDS: SENOKOT S TAB PO SCH (20:27)
[2018-07-05] MEDS: methylPREDNISolone INJ 40 MG/1 ML VIAL (J2920) IV SCH (20:27)
[2018-07-05 21:05] VITALS: BP 120/69
[2018-07-05] MEDS: IPRATROPIUM 0.5MG/ALBUTEROL 2.5MG INH SOL UD 3ML (DUONEB)(J7620) NEB SCH ×2 (21:18→23:27)
--- NOTE | 2018-07-05 23:31 | PHACANCOPD ---
PHARMACY VANCOMYCIN DOSING Pt Demographics Demographics Patient Age:57 , Weight:73.500 , Gender: male Adjusted Body Weight Date: 07/05/18, Adjusted Body Weight: Kg Vancomycin Vancomycin indication: SEPSIS Vancomycin Target Ranges: 15-20 mcg/ml Vancomycin Load Y/N: No Load Dose Date Time Vancomycin Load Dose: Date: Time: Vancomycin Dose Date: 07/05/18. Current Vancomycin Dose: [750MG Q8H] Intermittent Dosing?: No Labs Labs Laboratory Tests 07/05/18 14:10 Red Blood Count 4.43, Mean Corpuscular Volume 102.5 H, Mean Corpuscular Hemog lobin 35.4 H, Mean Corpuscular Hemoglobin Concent 34.6, Red Cell Distribution Width 14.2, Neutrophils (%) (Auto) 79.4 H, Lymphocytes (%) (Auto) 11.4 L, Monocytes (%) (Auto) 8.6 H, Eosinophils (%) (Auto) 0.0, Basophils (%) (Auto) 0.2, Neutrophils # (Auto) 8.3 H, Lymphocytes # (Auto) 1.2 L, Monocytes # (Auto) 0.9 H, Eosinophils # (Auto) 0.0, Basophils # (Auto) 0.0 Micro Microbiology 07/05/18 Blood Culture, Received Pending 07/05/18 Blood Culture, Received Pending 07/05/18 Respiratory Virus Panel (PCR) ([facility]URIE) - Final, Complete Influenza A H1-2008 Creatinine Clearance Date:07/05/18. Creatinine Clearance: [84.4].CALCULATED Pending Labs VANCOMYCIN TROUGH DUR 07/06@170 Assessment and Plan Maintaining Current Dose?: Yes Reason for dose change: No Dose Change Pharmacist Note Pharmacist Note Date: 07/05/18. Pharmacist note:Admission D/T sepsis.Rx w/azithromycin Q24 and Vancomycin per Pharmacy consult.Patient SCR=0.97: CRCL=84.4 Vanco 1 gram in ED 07/05@2030.Will begin regimen of 750mg IV q8h to begin 07/06@0200. Vancomycin trough is scheduled for 07/06@1700-prior to the 4th dose-will continue to follow ANGÉLICA HERNANDEZ PHARM[facility] Jul 05, 2018 23:30
[2018-07-05 23:59] VITALS: BP 99/56
[2018-07-06] VITALS (8 sets, daily range): BP systolic 95–146; BP diastolic 60–91; O2SAT 95–96
[2018-07-06 00:21] LABS: ABG BASE EXCESS -0.6 (-2.0-2.0); ABG HCO3 23.2 MEQ/L (22.0-26.0); ABG O2 SATURATION 97.8 % (95.0-99.0); ABG PARTIAL PRESSURE CO2 35.4 mmHg (35.0-45.0); ABG PARTIAL PRESSURE O2 104.8 mmHg (75.0-100.0); ABG TOTAL CO2 24.3 MEQ/L (22.0-29.0); ABG pH (ARTERIAL) 7.434 UNITS (7.350-7.450)
[2018-07-06] MEDS: methylPREDNISolone INJ 40 MG/1 ML VIAL (J2920) IV SCH ×4 (02:05→20:26)
[2018-07-06] MEDS: VANCOMYCIN HCL 750 MG, VIAL MATE ADAPTER 1 EACH in D5W 250 ML IV SCH ×2 (02:05→11:00)
[2018-07-06] MEDS: IPRATROPIUM 0.5MG/ALBUTEROL 2.5MG INH SOL UD 3ML (DUONEB)(J7620) NEB SCH ×5 (03:26→21:07)
[2018-07-06] MEDS: HEPARIN SOD (PORCINE) 5000 UNITS/ML VIAL SC SCH ×3 (05:16→21:54)
[2018-07-06 05:31] LABS: HEMATOCRIT 36.4 % (42.0-52.0); LYMPH # 0.7 10^3/uL (1.5-4.5); MEAN CORPUSCULAR HEMOGLOBIN 35.9 pg (27.0-33.0); MEAN CORPUSCULAR HGB CONC 34.6 g/dl (32.0-36.5); MEAN CORPUSCULAR VOLUME 103.7 fl (80.0-96.0); MONO # 0.3 10^3/uL (0.0-0.8); MONO % 6.4 % (0.0-5.0); NEUTROPHILS # 3.8 10^3/uL (1.8-7.7); NEUTROPHILS % 78.2 % (36.0-66.0); PLATELET COUNT, AUTOMATED 136 10^3/uL (150-450); RED BLOOD COUNT 3.51 10^6/uL (4.30-6.10); WHITE BLOOD COUNT 4.8 10^3/uL (4.0-10.0)
[2018-07-06 05:36] LABS: HEMOGLOBIN 12.6 g/dl (13.5-17.5)
[2018-07-06 06:02] LABS: BLOOD UREA NITROGEN 18 MG/DL (7-18); CALCIUM LEVEL 7.6 MG/DL (8.5-10.1); CARBON DIOXIDE LEVEL 28 MEQ/L (21-32); CHLORIDE LEVEL 104 MEQ/L (98-107); CREATININE FOR GFR 0.85 MG/DL (0.70-1.30); GLOMERULAR FILTRATION RATE > 60.0 (>56); GLUCOSE, FASTING 134 MG/DL (70-100); MAGNESIUM LEVEL 1.8 MG/DL (1.8-2.4); POTASSIUM SERUM 3.5 MEQ/L (3.5-5.1); SODIUM LEVEL 141 MEQ/L (136-145)
[2018-07-06] MEDS ORDERED: OSELTAMIVIR PHOSPHATE 75 MG CAP (TAMIFLU) PO ONE (06:45)
--- NOTE | 2018-07-06 08:31 | REP ---
PORTABLE CHEST: Two AP portable views of the chest are performed and compared to prior study of 03/09/2018. There is hyperinflation with emphysematous changes and fibrosis, all appearing similar to the prior study. No superimposed acute infiltrate is seen. Heart is normal in size. Mediastinal silhouette is unremarkable and unchanged. Metallic screw is seen in the region of the right bony glenoid. IMPRESSION: Chronic findings of COPD and fibrosis. No acute infiltrate. Electronically Signed by Bhavik Vasquez MD 07/06/2018 10:35 P
[2018-07-06] MEDS ORDERED: AZITHROMYCIN INJ 500 MG, VIAL MATE ADAPTER 1 EACH in D5W 250 ML IV SCH (09:00)
[2018-07-06] MEDS: VITAMIN D 1,000 INTERNATIONAL UNITS TABLET PO SCH (09:51)
[2018-07-06] MEDS: PANTOPRAZOLE 40MG TAB (PROTONIX) PO SCH (09:54)
[2018-07-06] MEDS: CETIRIZINE (ZyrTEC) 10 MG TAB PO SCH (09:55)
[2018-07-06] MEDS: ASPIRIN 81 MG ENTERIC TAB PO SCH (09:55)
[2018-07-06] MEDS: ALPRAZolam 0.5 MG TAB PO SCH ×2 (09:55→21:49)
[2018-07-06] MEDS: SENOKOT S TAB PO SCH ×2 (09:55→21:49)
[2018-07-06] MEDS: CEPACOL LOZENGE PO PRN (09:56)
--- NOTE | 2018-07-06 12:00 | IPN ---
DATE: 07/06/2018 SUBJECTIVE: The patient tells me he is feeling better, but still "it is hard as hell to breathe." He denies fevers, chills. OBJECTIVE: VITAL SIGNS: Temperature 97.5, pulse 89, respiratory rate 18, blood pressure 146/91, oxygen saturation 92% on 15 liters nasal cannula high flow. GENERAL: He is an elderly man, appears older than stated age, sitting up in bed, speaking in complete sentences. He does have some mild accessory muscle use. He appears to be tachypneic, but in no acute distress. HEENT: Cranial nerves II through XII are grossly intact. CARDIOVASCULAR EXAM: S1 and S2, he is not tachycardic. RESPIRATORY EXAM: Very prolonged expiratory phase with diffuse expiratory wheeze. ABDOMINAL EXAM: Bowel sounds are present. The abdomen is soft. EXTREMITIES: No clubbing, cyanosis, or edema. LABORATORY STUDIES: WBC 4.8, hemoglobin 12.6, platelet count 136. Chemistry panel - sodium 141, potassium 3.5, chloride 104, bicarb 28, BUN 18, creatinine 0.8. Lactic acid 4.1. AST 80, ALT 92. TSH 0.28. Thyroxine T4 13.4. Microbiology: Blood cultures are pending. Respiratory PCR panel is positive for influenza A. IMAGING: The patient did have a chest x-ray that reveals chronic findings of chronic obstructive pulmonary disease (COPD) and fibrosis. No acute infiltrate. ASSESSMENT/PLAN: This is a 57-year-old man with shortness of breath. PROBLEMS: 1. Shortness of breath, acute on chronic hypoxic respiratory failure secondary to alpha-1 antitrypsin deficiency with superimposed influenza infection. I have started the patient on Tamiflu this morning. He has already been started on azithromycin and vancomycin as well. I suspect should his blood cultures remain negative these could likely be discontinued within the next 24-48 hours. He is continued on DuoNebs, Solu-Medrol, as needed anxiety and pain medications, which he normally takes at home. He does appear to be improving at this time. I did have a lengthy discussion with him regarding goals of care and that his respiratory status may potentially worsen before it gets better. He is agreeable for intubation should it become necessary, even if it means he would never come off. He is aware that given the fact that given his poor baseline respiratory status he may nerve come off the ventilator if he were to be intubated if he were to be intubated. The patient normally follows with Dr. Hood of pulmonary. The patient is normally chronically steroid dependent, alternates 10 and 20 mg every other day as well as 3 liters of oxygen at his baseline. 2. Abnormal liver function tests. Likely related to his alpha-1 antitrypsin deficiency. 3. Lactic acidosis. Likely secondary to increased work of breathing. 4. Anxiety. Continue with Xanax. 5. Hypertension. His home captopril and hydrochlorothiazide are currently on hold. DISPOSITION: Pending his clinical improvement. I suspect it will take several days for him to clinically improve.
--- NOTE | 2018-07-06 17:05 | REP ---
The deep veins demonstrate normal compression, normal Doppler color flow and normal Doppler waveforms with respiration and augmentation from the popliteal veins to the common femoral veins on the right and the left . There is a Sosa's cyst in the right popliteal fossa measuring 2.4 x 0.7 x 2.0 cm. There is a Sosa's cyst in the left popliteal fossa measuring 3.0 x 1.4 x 2.6 cm. Impression: There is no deep vein thrombus on the right or the left. 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 Electronically Signed by Bhavik Capellan MD 07/06/2018 04:57 P
[2018-07-06] MEDS: NS 1,000 ML IV SCH (17:40)
[2018-07-06] MEDS: VANCOMYCIN HCL 1,000 MG, VIAL MATE ADAPTER 1 EACH in D5W 250 ML IV SCH (17:53)
[2018-07-06] MEDS: OSELTAMIVIR PHOSPHATE 75 MG CAP (TAMIFLU) PO SCH (21:49)
[2018-07-07] MEDS: IPRATROPIUM 0.5MG/ALBUTEROL 2.5MG INH SOL UD 3ML (DUONEB)(J7620) NEB SCH ×7 (00:45→23:30)
[2018-07-07] MEDS: methylPREDNISolone INJ 40 MG/1 ML VIAL (J2920) IV SCH ×4 (01:52→19:44)
[2018-07-07] MEDS: VANCOMYCIN HCL 1,000 MG, VIAL MATE ADAPTER 1 EACH in D5W 250 ML IV SCH (01:52)
[2018-07-07 04:00] VITALS: BP 110/66
[2018-07-07 05:58] LABS: BASO % 0.1 % (0.0-1.0); HEMOGLOBIN 12.3 g/dl (13.5-17.5); LYMPH # 0.8 10^3/uL (1.5-4.5); LYMPH % 6.6 % (24.0-44.0); MEAN CORPUSCULAR HEMOGLOBIN 35.1 pg (27.0-33.0); MEAN CORPUSCULAR HGB CONC 34.2 g/dl (32.0-36.5); MEAN CORPUSCULAR VOLUME 102.9 fl (80.0-96.0); MONO # 0.7 10^3/uL (0.0-0.8); MONO % 6.1 % (0.0-5.0); NEUTROPHILS # 10.2 10^3/uL (1.8-7.7); NEUTROPHILS % 86.8 % (36.0-66.0); PLATELET COUNT, AUTOMATED 143 10^3/uL (150-450); WHITE BLOOD COUNT 11.7 10^3/uL (4.0-10.0)
[2018-07-07] MEDS: HEPARIN SOD (PORCINE) 5000 UNITS/ML VIAL SC SCH ×3 (06:03→20:54)
[2018-07-07 06:09] LABS: BLOOD UREA NITROGEN 17 MG/DL (7-18); CALCIUM LEVEL 7.4 MG/DL (8.5-10.1); CARBON DIOXIDE LEVEL 29 MEQ/L (21-32); CHLORIDE LEVEL 109 MEQ/L (98-107); CREATININE FOR GFR 0.71 MG/DL (0.70-1.30); GLOMERULAR FILTRATION RATE > 60.0 (>56); GLUCOSE, FASTING 122 MG/DL (70-100); MAGNESIUM LEVEL 2.2 MG/DL (1.8-2.4); POTASSIUM SERUM 3.7 MEQ/L (3.5-5.1); SODIUM LEVEL 144 MEQ/L (136-145)
[2018-07-07] MEDS: TIOTROPIUM INHALER/CAPSULE (SPIRIVA) INH SCH (07:04)
[2018-07-07 08:00] VITALS: BP 118/75
[2018-07-07] MEDS: CEPACOL LOZENGE PO PRN ×2 (09:43→13:44)
[2018-07-07] MEDS: OSELTAMIVIR PHOSPHATE 75 MG CAP (TAMIFLU) PO SCH ×2 (09:44→20:51)
[2018-07-07] MEDS: ASPIRIN 81 MG ENTERIC TAB PO SCH (09:44)
[2018-07-07] MEDS: SENOKOT S TAB PO SCH ×2 (09:44→20:54)
[2018-07-07] MEDS: ALPRAZolam 0.5 MG TAB PO SCH ×2 (09:44→20:53)
[2018-07-07] MEDS: CETIRIZINE (ZyrTEC) 10 MG TAB PO SCH (09:44)
[2018-07-07] MEDS: VITAMIN D 1,000 INTERNATIONAL UNITS TABLET PO SCH (09:44)
[2018-07-07] MEDS: PANTOPRAZOLE 40MG TAB (PROTONIX) PO SCH (09:44)
[2018-07-07] MEDS: NS 1,000 ML IV SCH (09:56)
[2018-07-07] MEDS: traMADol 50 MG TAB PO PRN ×3 (10:01→23:57)
[2018-07-07] MEDS: FLUTICASONE PROP 0.05% NASAL SPRAY 16 GM (FLONASE) NARES SCH ×3 (10:30→20:59)
[2018-07-07] MEDS: hydroCHLOROthiazide 25 MG TAB PO SCH (10:39)
[2018-07-07 10:40] VITALS: BP 115/70
[2018-07-07 12:00] VITALS: BP 133/75
[2018-07-07 16:00] VITALS: BP 137/65
--- NOTE | 2018-07-07 18:19 | IPNPDOC ---
Text Note Date of Service The patient was seen on 07/07/18. NOTE Subjective: Patient was seen and examined at the bedside. Patient was that his breathing is doing slightly worse this morning has been requiring higher amounts of supplemental oxygen. Denies chest pain or palpitations. Denies nausea, vomiting, abdominal pain, constipation, diarrhea or discomfort with urination. Objective: Vitals (See below) General: Lying in bed, no acute distress, comfortable, AAOx3 HEENT: NC, AT CVS: RRR, +S1S2 Lungs: Fair air entry b/l, diffuse expiratory wheezing noted, no rhonchi / rales Abdomen: Soft, ND, NT Extremities: Edema, - Calf tenderness Assessment and plan: Shortness of breath - likely 2/2 acute on chronic hypoxic respiratory failure - likely 2/2 A1AT deficiency superimposed with influenza A infection - Presented to the ER with complaints of shortness of breath - At baseline. Patient uses 3 L nasal cannula oxygen. Currently, he is up to 15 L of Vapotherm - Physical expiratory wheezing - Leukocytosis - likely 2/2 on steroids - Blood cultures 07/05: Negative at 48 hours, MRSA screen 07/06: Negative, Sputum culture 07/07: Pending - Respiratory vpanel 07/05: Influenza A H1-2009 - c/w Azithromycin and Oseltamivir, Will DC Vancomycin - c/w Solumedrol; will taper patient back down to prednisone (alternating dose as an outpatient) as he clinically improves Abnormal liver function - likely 2/2 A1AT deficiency s/p Lactic acidosis - likely 2/2 increased work of breathing Anxiety - c/w Aplrazolam HTN - BP well controlled - c/w HCTZ GERD - c/w Protonix DVT prophylaxis - c/w Heparin VS,Fishbone, I+O VS, Fishbone, I+O Laboratory Tests 07/07/18 05:18 Red Blood Count 3.50 L, Mean Corpuscular Volume 102.9 H, Mean Corpuscular Hemoglobin 35.1 H, Mean Corpuscular Hemoglobin Concent 34.2, Red Cell Distribution Width 14.1, Neutrophils (%) (Auto) 86.8 H, Lymphocytes (%) (Auto) 6.6 L, Monocytes (%) (Auto) 6.1 H, Eosinophils (%) (Auto) 0.0, Basophils (%) (Auto) 0.1, Neutrophils # (Auto) 10.2 H, Lymphocytes # (Auto) 0.8 L, Monocytes # (Auto) 0.7, Eosinophils # (Auto) 0.0, Basophils # (Auto) 0.0, Calcium Level 7.4 L Vital Signs Date Time Temp Pulse Resp B/P (MAP) Pulse Ox O2 Delivery O2 Flow Rate FiO2 07/07/18 16:47 98.1 93 20 137/65 93 15.0 30 07/06/18 16:36 Nasal Cannula I&O- Last 24 Hours up to 6 AM 07/07/18 06:00 Intake Total 2950 ml Output Total 2325 ml Balance 625 ml SRI CONCEPCION MD Jul 07, 2018 18:19
[2018-07-07 20:00] VITALS: BP 148/80
[2018-07-07] MEDS: guaiFENesin ER 600 MG TAB PO PRN (20:51)
[2018-07-08] VITALS (16 sets, daily range): BP systolic 114–148; BP diastolic 60–86; O2SAT 86–96
[2018-07-08] MEDS: methylPREDNISolone INJ 40 MG/1 ML VIAL (J2920) IV SCH ×4 (02:38→21:01)
[2018-07-08] MEDS: IPRATROPIUM 0.5MG/ALBUTEROL 2.5MG INH SOL UD 3ML (DUONEB)(J7620) NEB SCH ×5 (04:32→20:49)
[2018-07-08 05:02] LABS: BASO % 0.1 % (0.0-1.0); HEMOGLOBIN 13.2 g/dl (13.5-17.5); LYMPH # 0.7 10^3/uL (1.5-4.5); LYMPH % 6.6 % (24.0-44.0); MEAN CORPUSCULAR HEMOGLOBIN 35.6 pg (27.0-33.0); MEAN CORPUSCULAR HGB CONC 34.7 g/dl (32.0-36.5); MEAN CORPUSCULAR VOLUME 102.4 fl (80.0-96.0); MONO # 0.6 10^3/uL (0.0-0.8); MONO % 5.8 % (0.0-5.0); NEUTROPHILS # 9.6 10^3/uL (1.8-7.7); NEUTROPHILS % 87.1 % (36.0-66.0); PLATELET COUNT, AUTOMATED 142 10^3/uL (150-450); RED BLOOD COUNT 3.71 10^6/uL (4.30-6.10)
[2018-07-08 05:24] LABS: BLOOD UREA NITROGEN 20 MG/DL (7-18); CALCIUM LEVEL 7.8 MG/DL (8.5-10.1); CARBON DIOXIDE LEVEL 32 MEQ/L (21-32); CHLORIDE LEVEL 104 MEQ/L (98-107); GLOMERULAR FILTRATION RATE > 60.0 (>56); GLUCOSE, FASTING 135 MG/DL (70-100); MAGNESIUM LEVEL 2.2 MG/DL (1.8-2.4); POTASSIUM SERUM 3.3 MEQ/L (3.5-5.1); SODIUM LEVEL 143 MEQ/L (136-145)
[2018-07-08] MEDS: HEPARIN SOD (PORCINE) 5000 UNITS/ML VIAL SC SCH ×3 (06:15→22:47)
[2018-07-08] MEDS: TIOTROPIUM INHALER/CAPSULE (SPIRIVA) INH SCH (07:43)
[2018-07-08] MEDS ORDERED: POTASSIUM CHLORIDE 10 MEQ SR TABLET PO ONE (08:00)
[2018-07-08] MEDS: ALPRAZolam 0.5 MG TAB PO SCH ×2 (08:04→21:02)
[2018-07-08] MEDS: guaiFENesin ER 600 MG TAB PO PRN (08:04)
[2018-07-08] MEDS: CETIRIZINE (ZyrTEC) 10 MG TAB PO SCH (08:04)
[2018-07-08] MEDS: ASPIRIN 81 MG ENTERIC TAB PO SCH (08:05)
[2018-07-08] MEDS: OSELTAMIVIR PHOSPHATE 75 MG CAP (TAMIFLU) PO SCH ×2 (08:05→21:02)
[2018-07-08] MEDS: VITAMIN D 1,000 INTERNATIONAL UNITS TABLET PO SCH (08:05)
[2018-07-08] MEDS: PANTOPRAZOLE 40MG TAB (PROTONIX) PO SCH (08:05)
[2018-07-08] MEDS: traMADol 50 MG TAB PO PRN ×3 (08:16→21:01)
[2018-07-08] MEDS: hydroCHLOROthiazide 25 MG TAB PO SCH (08:19)
[2018-07-08] MEDS: SENOKOT S TAB PO SCH ×2 (08:22→21:00)
[2018-07-08] MEDS: FLUTICASONE PROP 0.05% NASAL SPRAY 16 GM (FLONASE) NARES SCH ×3 (08:23→21:00)
--- NOTE | 2018-07-08 15:02 | IPNPDOC ---
Text Note Date of Service The patient was seen on 07/08/18. NOTE Subjective: Patient was seen and examined at the bedside. Patient with that overnight he has been experiencing problems, he still is using 15 L of Vapotherm. Currently, denies chest pains, palpitations. Still expresses a mild cough with associated right-sided rib pain. Denies any nausea, vomiting, abdominal pain, constipation, diarrhea or discomfort with urination. Objective: Vitals (See below) General: Lying in bed, no acute distress, comfortable, AAOx3 HEENT: NC, AT CVS: RRR, +S1S2 Lungs: Fair air entry b/l, no appreciable wheezing can be heard this morning. There are no rhonchi, rales Abdomen: Soft, nondistended, without tenderness Extremities: Trace lower extremity edema, - Calf tenderness Assessment and plan: Shortness of breath - likely 2/2 acute on chronic hypoxic respiratory failure - likely 2/2 A1AT deficiency superimposed with influenza A infection - Clinically remains unchanged from yesterday - At baseline, patient uses 3 L nasal cannula oxygen; Currently, he is up to 15 L of Vapotherm - Physical with improvement in aeration bilaterally - Leukocytosis - likely 2/2 on steroids - Blood cultures 07/05: Negative at 48 hours, MRSA screen 07/06: Negative, Sputum culture 07/07: Pending - Respiratory panel 07/05: Influenza A H1-2009 - c/w Azithromycin and Oseltamivir, s/p Vancomycin - c/w Solumedrol; will taper patient back down to prednisone (alternating dose as an outpatient) as he clinically improves A1AT deficiency - Patient receives infusion of A1AT every week - Will confirm dose from outpatient Abnormal liver function - likely 2/2 A1AT deficiency s/p Lactic acidosis - likely 2/2 increased work of breathing Anxiety - c/w Alprazolam HTN - BP well controlled - c/w HCTZ GERD - c/w Protonix DVT prophylaxis - c/w Heparin Disposition: - Awaiting clinical improvement Anam HERNÁNDEZ, I+O Anam HERNÁNDEZ, I+O Laboratory Tests 07/08/18 04:38 Red Blood Count 3.71 L, Mean Corpuscular Volume 102.4 H, Mean Corpuscular Hemoglobin 35.6 H, Mean Corpuscular Hemoglobin Concent 34.7, Red Cell Distribution Width 13.8, Neutrophils (%) (Auto) 87.1 H, Lymphocytes (%) (Auto) 6.6 L, Monocytes (%) (Auto) 5.8 H, Eosinophils (%) (Auto) 0.0, Basophils (%) (Auto) 0.1, Neutrophils # (Auto) 9.6 H, Lymphocytes # (Auto) 0.7 L, Monocytes # (Auto) 0.6, Eosinophils # (Auto) 0.0, Basophils # (Auto) 0.0, Calcium Level 7.8 L Vital Signs Date Time Temp Pulse Resp B/P (MAP) Pulse Ox O2 Delivery O2 Flow Rate FiO2 07/08/18 14:33 97.7 76 22 144/84 90 15.0 30 07/08/18 06:09 Nasal Cannula I&O- Last 24 Hours up to 6 AM 07/08/18 06:00 Intake Total 2900 ml Output Total 1175 ml Balance 1725 ml SRI CONCEPCION MD Jul 08, 2018 15:01
[2018-07-09] VITALS (16 sets, daily range): BP systolic 118–162; BP diastolic 77–88; O2SAT 87–92
[2018-07-09] MEDS: IPRATROPIUM 0.5MG/ALBUTEROL 2.5MG INH SOL UD 3ML (DUONEB)(J7620) NEB SCH ×7 (00:06→22:20)
[2018-07-09] MEDS: methylPREDNISolone INJ 40 MG/1 ML VIAL (J2920) IV SCH ×4 (02:57→20:19)
[2018-07-09 05:35] LABS: BASO % 0.1 % (0.0-1.0); HEMATOCRIT 39.7 % (42.0-52.0); HEMOGLOBIN 13.5 g/dl (13.5-17.5); LYMPH # 0.5 10^3/uL (1.5-4.5); LYMPH % 5.7 % (24.0-44.0); MEAN CORPUSCULAR HEMOGLOBIN 35.1 pg (27.0-33.0); MEAN CORPUSCULAR VOLUME 103.1 fl (80.0-96.0); MONO # 0.5 10^3/uL (0.0-0.8); MONO % 5.1 % (0.0-5.0); NEUTROPHILS # 8.4 10^3/uL (1.8-7.7); NEUTROPHILS % 88.4 % (36.0-66.0); PLATELET COUNT, AUTOMATED 150 10^3/uL (150-450); RED BLOOD COUNT 3.85 10^6/uL (4.30-6.10); WHITE BLOOD COUNT 9.5 10^3/uL (4.0-10.0)
[2018-07-09 05:54] LABS: BLOOD UREA NITROGEN 22 MG/DL (7-18); CARBON DIOXIDE LEVEL 32 MEQ/L (21-32); CHLORIDE LEVEL 100 MEQ/L (98-107); CREATININE FOR GFR 0.73 MG/DL (0.70-1.30); GLOMERULAR FILTRATION RATE > 60.0 (>56); GLUCOSE, FASTING 124 MG/DL (70-100); MAGNESIUM LEVEL 2.2 MG/DL (1.8-2.4); POTASSIUM SERUM 3.4 MEQ/L (3.5-5.1); SODIUM LEVEL 142 MEQ/L (136-145)
[2018-07-09] MEDS: HEPARIN SOD (PORCINE) 5000 UNITS/ML VIAL SC SCH ×3 (06:34→20:20)
[2018-07-09] MEDS: TIOTROPIUM INHALER/CAPSULE (SPIRIVA) INH SCH (07:33)
[2018-07-09] MEDS ORDERED: POTASSIUM CHLORIDE 10 MEQ SR TABLET PO ONE (08:00)
[2018-07-09] MEDS: VITAMIN D 1,000 INTERNATIONAL UNITS TABLET PO SCH (08:22)
[2018-07-09] MEDS: PANTOPRAZOLE 40MG TAB (PROTONIX) PO SCH (08:22)
[2018-07-09] MEDS: ASPIRIN 81 MG ENTERIC TAB PO SCH (08:22)
[2018-07-09] MEDS: CETIRIZINE (ZyrTEC) 10 MG TAB PO SCH (08:22)
[2018-07-09] MEDS: SENOKOT S TAB PO SCH ×2 (08:23→20:20)
[2018-07-09] MEDS: ALPRAZolam 0.5 MG TAB PO SCH ×2 (08:23→20:20)
[2018-07-09] MEDS: OSELTAMIVIR PHOSPHATE 75 MG CAP (TAMIFLU) PO SCH ×2 (08:23→20:21)
[2018-07-09] MEDS: FLUTICASONE PROP 0.05% NASAL SPRAY 16 GM (FLONASE) NARES SCH ×3 (08:24→20:21)
[2018-07-09] MEDS: hydroCHLOROthiazide 25 MG TAB PO SCH (08:24)
[2018-07-09] MEDS: traMADol 50 MG TAB PO PRN ×2 (08:37→22:51)
[2018-07-09] MEDS ORDERED: FUROSEMIDE 20 MG/2 ML VIAL (J1940) IV ONE (09:00)
--- NOTE | 2018-07-09 13:01 | IPNPDOC ---
Text Note Date of Service The patient was seen on 07/09/18. NOTE Subjective: Patient was seen and examined at the bedside. Currently notes that his breathing is doing slightly better. Denies any palpitations, expenses some right-sided rib pain with coughing that is well controlled with tramadol still expensive, some wheezing. Denies nausea, vomiting, abdominal pain, constipation, diarrhea or discomfort with urination. Objective: Vitals (See below) General: Lying in bed, no acute distress, comfortable, AAOx3 HEENT: NC, AT CVS: RRR, +S1S2 Lungs: Fair air entry b/l, no significant wheezing / rhonchi / rales Abdomen: Soft, ND without any tenderness noted Extremities: Trace LE edema, - Calf tenderness Assessment and plan: Shortness of breath - likely 2/2 acute on chronic hypoxic respiratory failure - likely 2/2 A1AT deficiency superimposed with influenza A infection - Clinically remains unchanged from yesterday - At baseline, patient uses 3 L nasal cannula oxygen; Currently, he is up to 15 L of Vapotherm - Physical with improvement in aeration bilaterally - Leukocytosis - likely 2/2 on steroids - Blood cultures /: Negative at 72 hours, MRSA screen /: Negative, Sputum culture 2/12: Serratia Marcescens - Respiratory panel 2/: Influenza A H1-2008 - Will start Levaquin (Day #1; re: Sputum culture); c/w Oseltamivir (Day #4), s/p Vancomycin & Azithromycin - c/w Solumedrol - will continue with current dose for now A1AT deficiency - Patient receives infusion of A1AT every week - Will confirm dose from outpatient Abnormal liver function - likely 2/2 A1AT deficiency s/p Lactic acidosis - likely 2/2 increased work of breathing Anxiety - c/w Alprazolam HTN - BP well controlled - c/w HCTZ GERD - c/w Protonix DVT prophylaxis - c/w Heparin Disposition: - Awaiting clinical improvement Anam HERNÁNDEZ, I+O VSAnam, I+O Laboratory Tests 07/09/18 05:08 Red Blood Count 3.85 L, Mean Corpuscular Volume 103.1 H, Mean Corpuscular Hemoglobin 35.1 H, Mean Corpuscular Hemoglobin Concent 34.0, Red Cell Distribution Width 13.6, Neutrophils (%) (Auto) 88.4 H, Lymphocytes (%) (Auto) 5.7 L, Monocytes (%) (Auto) 5.1 H, Eosinophils (%) (Auto) 0.0, Basophils (%) (Auto) 0.1, Neutrophils # (Auto) 8.4 H, Lymphocytes # (Auto) 0.5 L, Monocytes # (Auto) 0.5, Eosinophils # (Auto) 0.0, Basophils # (Auto) 0.0, Calcium Level 8.0 L Vital Signs Date Time Temp Pulse Resp B/P (MAP) Pulse Ox O2 Delivery O2 Flow Rate FiO2 07/09/18 12:00 97.2 89 17 139/87 (104) 91 12.0 30 07/08/18 20:50 Nasal Cannula I&O- Last 24 Hours up to 6 AM 07/09/18 06:00 Intake Total 1960 ml Output Total 1600 ml Balance 360 ml SRI CONCEPCION MD Jul 09, 2018 13:01
--- NOTE | 2018-07-09 13:44 | REP ---
PA and lateral chest: Comparisons are the portable chest dated 07/05/2018 and PA and lateral chest of 03/09/2018. There is chronic hyperinflation, unchanged. The lung ardon otherwise clear. Cardiac size is normal. The kandice, mediastinum, skeletal structures are unchanged. There is a orthopedic screw in the right shoulder, unchanged. Impression: Chronic hyperinflation. No acute cardiopulmonary findings. Electronically Signed by Bhavik Capellan MD 07/09/2018 01:36 P
[2018-07-09] MEDS: LevoFLOXacin 500 MG TABLET PO SCH (13:47)
[2018-07-10] VITALS (22 sets, daily range): BP systolic 127–174; BP diastolic 79–96; O2SAT 87–93
[2018-07-10] MEDS: methylPREDNISolone INJ 40 MG/1 ML VIAL (J2920) IV SCH ×4 (02:49→23:53)
[2018-07-10 05:03] LABS: BASO % 0.2 % (0.0-1.0); HEMATOCRIT 41.7 % (42.0-52.0); HEMOGLOBIN 14.5 g/dl (13.5-17.5); LYMPH # 0.5 10^3/uL (1.5-4.5); LYMPH % 4.5 % (24.0-44.0); MEAN CORPUSCULAR HEMOGLOBIN 35.5 pg (27.0-33.0); MEAN CORPUSCULAR HGB CONC 34.8 g/dl (32.0-36.5); MEAN CORPUSCULAR VOLUME 102.2 fl (80.0-96.0); MONO # 0.9 10^3/uL (0.0-0.8); MONO % 7.1 % (0.0-5.0); NEUTROPHILS # 10.4 10^3/uL (1.8-7.7); NEUTROPHILS % 87.4 % (36.0-66.0); PLATELET COUNT, AUTOMATED 159 10^3/uL (150-450); RED BLOOD COUNT 4.08 10^6/uL (4.30-6.10); WHITE BLOOD COUNT 11.9 10^3/uL (4.0-10.0)
[2018-07-10 05:27] LABS: BLOOD UREA NITROGEN 21 MG/DL (7-18); CALCIUM LEVEL 8.5 MG/DL (8.5-10.1); CARBON DIOXIDE LEVEL 32 MEQ/L (21-32); CHLORIDE LEVEL 98 MEQ/L (98-107); CREATININE FOR GFR 0.88 MG/DL (0.70-1.30); GLOMERULAR FILTRATION RATE > 60.0 (>56); GLUCOSE, FASTING 135 MG/DL (70-100); MAGNESIUM LEVEL 2.2 MG/DL (1.8-2.4); POTASSIUM SERUM 3.3 MEQ/L (3.5-5.1); SODIUM LEVEL 140 MEQ/L (136-145)
[2018-07-10] MEDS: LevoFLOXacin 500 MG TABLET PO SCH (06:07)
[2018-07-10] MEDS: HEPARIN SOD (PORCINE) 5000 UNITS/ML VIAL SC SCH ×3 (06:07→21:05)
[2018-07-10] MEDS: IPRATROPIUM 0.5MG/ALBUTEROL 2.5MG INH SOL UD 3ML (DUONEB)(J7620) NEB SCH ×5 (07:32→23:39)
[2018-07-10] MEDS: TIOTROPIUM INHALER/CAPSULE (SPIRIVA) INH SCH (07:32)
[2018-07-10] MEDS ORDERED: POTASSIUM CHLORIDE 10 MEQ SR TABLET PO ONE ×2 (08:00→13:00)
[2018-07-10] MEDS: VITAMIN D 1,000 INTERNATIONAL UNITS TABLET PO SCH (08:14)
[2018-07-10] MEDS: CETIRIZINE (ZyrTEC) 10 MG TAB PO SCH (08:14)
[2018-07-10] MEDS: ALPRAZolam 0.5 MG TAB PO SCH ×2 (08:15→21:04)
[2018-07-10] MEDS: OSELTAMIVIR PHOSPHATE 75 MG CAP (TAMIFLU) PO SCH ×2 (08:15→21:05)
[2018-07-10] MEDS: ASPIRIN 81 MG ENTERIC TAB PO SCH (08:15)
[2018-07-10] MEDS: PANTOPRAZOLE 40MG TAB (PROTONIX) PO SCH (08:15)
[2018-07-10] MEDS: hydroCHLOROthiazide 25 MG TAB PO SCH (08:15)
[2018-07-10] MEDS: SENOKOT S TAB PO SCH ×2 (08:15→21:04)
[2018-07-10] MEDS: guaiFENesin ER 600 MG TAB PO PRN (08:15)
[2018-07-10] MEDS: FLUTICASONE PROP 0.05% NASAL SPRAY 16 GM (FLONASE) NARES SCH ×3 (08:16→21:00)
[2018-07-10] MEDS ORDERED: FUROSEMIDE 20 MG/2 ML VIAL (J1940) IV ONE (10:00)
[2018-07-10] MEDS: traMADol 50 MG TAB PO PRN ×2 (10:12→18:35)
--- NOTE | 2018-07-10 14:05 | IPNPDOC ---
Text Note Date of Service The patient was seen on 07/10/18. NOTE Subjective: Patient was seen and examined at the bedside. Patient with that his breathing is doing better. Denies any chest pain. She is breath, palpitations. Denies any constipation, diarrhea or abdominal pain. Advised patient that we will attempt to titrate down his oxygen. Objective: Vitals (See below) General: Lying in bed, no acute distress, comfortable, AAOx3 HEENT: NC, AT CVS: RRR, +S1S2 Lungs: Fair air entry b/l, no auscultated evidence of rhonchi, wheezing, rales Abdomen: Soft, non-tender with distention Extremities: Trace LE edema, - Calf tenderness Assessment and plan: Shortness of breath - likely 2/2 acute on chronic hypoxic respiratory failure - likely 2/2 A1AT deficiency superimposed with influenza A infection - Baseline oxygen use of 3L; Still remains on VapoTherm at 10L - Physical with improvement in aeration bilaterally - Leukocytosis - likely 2/2 on steroids - Blood cultures 07/05: Negative at 72 hours, MRSA screen 07/06: Negative, Sputum culture 07/07: Serratia Marcescens / Haemophilus Parahaemolyticus - Respiratory panel 07/05: Influenza A H1-2009 - c/w Levaquin (Day #2; re: Sputum culture); c/w Oseltamivir (Day #5), s/p Vancomycin & Azithromycin - c/w Solumedrol - will reduce frequency A1AT deficiency - Patient receives infusion of A1AT every week - Will confirm dose from outpatient Abnormal liver function - likely 2/2 A1AT deficiency s/p Lactic acidosis - likely 2/2 increased work of breathing Anxiety - c/w Alprazolam HTN - BP well controlled - c/w HCTZ GERD - c/w Protonix DVT prophylaxis - c/w Heparin Disposition: - Awaiting clinical improvement VS,Anam, I+O VSAnam, I+O Laboratory Tests 07/10/18 04:42 Red Blood Count 4.08 L, Mean Corpuscular Volume 102.2 H, Mean Corpuscular Hemoglobin 35.5 H, Mean Corpuscular Hemoglobin Concent 34.8, Red Cell Distribution Width 13.4, Neutrophils (%) (Auto) 87.4 H, Lymphocytes (%) (Auto) 4.5 L, Monocytes (%) (Auto) 7.1 H, Eosinophils (%) (Auto) 0.0, Basophils (%) (Auto) 0.2, Neutrophils # (Auto) 10.4 H, Lymphocytes # (Auto) 0.5 L, Monocytes # (Auto) 0.9 H, Eosinophils # (Auto) 0.0, Basophils # (Auto) 0.0, Calcium Level 8.5 Vital Signs Date Time Temp Pulse Resp B/P (MAP) Pulse Ox O2 Delivery O2 Flow Rate FiO2 07/10/18 12:55 10.0 30 07/10/18 12:00 89 07/10/18 11:54 98.0 107 18 127/79 (95) 07/08/18 20:50 Nasal Cannula I&O- Last 24 Hours up to 6 AM 07/10/18 06:00 Intake Total 1260 ml Output Total 1725 ml Balance -465 ml SRI CONCEPCION MD Jul 10, 2018 14:05
[2018-07-10] MEDS ORDERED: SLF 3 ML SYR IV PRN (14:45)
[2018-07-10] MEDS: BENZONATATE 100 MG CAP PO SCH ×2 (16:11→21:04)
[2018-07-10] MEDS: SLF 3 ML SYR IV SCH (23:54)
[2018-07-11] VITALS (28 sets, daily range): BP systolic 124–150; BP diastolic 73–101; O2SAT 89–97
[2018-07-11] MEDS: IPRATROPIUM 0.5MG/ALBUTEROL 2.5MG INH SOL UD 3ML (DUONEB)(J7620) NEB SCH ×5 (04:17→23:58)
[2018-07-11] MEDS: LevoFLOXacin 500 MG TABLET PO SCH (05:18)
[2018-07-11] MEDS: traMADol 50 MG TAB PO PRN ×2 (05:18→17:00)
[2018-07-11] MEDS: HEPARIN SOD (PORCINE) 5000 UNITS/ML VIAL SC SCH ×3 (05:19→21:01)
[2018-07-11] MEDS: SLF 3 ML SYR IV SCH ×3 (05:19→21:02)
[2018-07-11] MEDS: TIOTROPIUM INHALER/CAPSULE (SPIRIVA) INH SCH (07:40)
[2018-07-11] MEDS: SENOKOT S TAB PO SCH ×2 (09:00→21:00)
[2018-07-11] MEDS: methylPREDNISolone INJ 40 MG/1 ML VIAL (J2920) IV SCH ×2 (09:14→16:58)
[2018-07-11] MEDS: CETIRIZINE (ZyrTEC) 10 MG TAB PO SCH (09:15)
[2018-07-11] MEDS: VITAMIN D 1,000 INTERNATIONAL UNITS TABLET PO SCH (09:15)
[2018-07-11] MEDS: ALPRAZolam 0.5 MG TAB PO SCH ×2 (09:15→21:00)
[2018-07-11] MEDS: PANTOPRAZOLE 40MG TAB (PROTONIX) PO SCH (09:16)
[2018-07-11] MEDS: hydroCHLOROthiazide 25 MG TAB PO SCH (09:16)
[2018-07-11] MEDS: OSELTAMIVIR PHOSPHATE 75 MG CAP (TAMIFLU) PO SCH ×2 (09:16→21:00)
[2018-07-11] MEDS: BENZONATATE 100 MG CAP PO SCH ×2 (09:17→21:00)
[2018-07-11] MEDS: ASPIRIN 81 MG ENTERIC TAB PO SCH (09:17)
[2018-07-11] MEDS: FLUTICASONE PROP 0.05% NASAL SPRAY 16 GM (FLONASE) NARES SCH ×3 (09:19→21:00)
[2018-07-11 10:40] LABS: HEMATOCRIT 43.5 % (42.0-52.0); HEMOGLOBIN 15.1 g/dl (13.5-17.5); MEAN CORPUSCULAR HEMOGLOBIN 35.5 pg (27.0-33.0); MEAN CORPUSCULAR HGB CONC 34.7 g/dl (32.0-36.5); MEAN CORPUSCULAR VOLUME 102.4 fl (80.0-96.0); PLATELET COUNT, AUTOMATED 156 10^3/uL (150-450); RED BLOOD COUNT 4.25 10^6/uL (4.30-6.10); WHITE BLOOD COUNT 12.8 10^3/uL (4.0-10.0)
[2018-07-11 11:06] LABS: BLOOD UREA NITROGEN 30 MG/DL (7-18); CALCIUM LEVEL 8.7 MG/DL (8.5-10.1); CARBON DIOXIDE LEVEL 35 MEQ/L (21-32); CHLORIDE LEVEL 98 MEQ/L (98-107); CREATININE FOR GFR 0.87 MG/DL (0.70-1.30); GLOMERULAR FILTRATION RATE > 60.0 (>56); GLUCOSE, FASTING 134 MG/DL (70-100); MAGNESIUM LEVEL 2.2 MG/DL (1.8-2.4); POTASSIUM SERUM 3.5 MEQ/L (3.5-5.1); SODIUM LEVEL 140 MEQ/L (136-145)
--- NOTE | 2018-07-11 11:23 | IPNPDOC ---
Text Note Date of Service The patient was seen on 07/11/18. NOTE Subjective: Patient was seen and examined at the bedside. Currently patient notes that his breathing is doing slightly better. He denies any chest pain or palpitations. Denies any nausea or vomiting. Still experiences a cough, however, it has subsided. Sputum production has subsided as well. He denies abdominal pain, constipation, diarrhea or discomfort with urination. Objective: Vitals (See below) General: Lying in bed, no acute distress, comfortable, AAOx3 HEENT: NC, AT CVS: RRR, +S1S2 Lungs: Fair air entry b/l, there does not appear to be any evidence of wheezing, rhonchi or rales. Upon auscultation Abdomen: Soft, nondistended, without tenderness Extremities: Trace LE edema still persists, - Calf tenderness Assessment and plan: Shortness of breath - likely 2/2 acute on chronic hypoxic respiratory failure - likely 2/2 A1AT deficiency superimposed with influenza A infection - Baseline oxygen use of 3L; Still remains on VapoTherm at 10L - Physical without any adventitious lung sounds - Leukocytosis - likely 2/2 on steroids - Blood cultures 07/05: Negative at 72 hours, MRSA screen 07/06: Negative, Sputum culture 07/07: Serratia Marcescens / Haemophilus Parahaemolyticus - Respiratory panel 07/05: Influenza A H1-2008 - c/w Levaquin (Day #3; re: Sputum culture); c/w Oseltamivir (Day #6), s/p Van comycin & Azithromycin - c/w Solumedrol; will continue with current dose and consider reducing the frequency tomorrow A1AT deficiency - Patient receives infusion of A1 proteinase inhibitor every week (); receives 60mg/kg (~4250mg) - Will confirm with pharmacy if available; will provide here if possible Abnormal liver function - likely 2/2 A1AT deficiency s/p Lactic acidosis - likely 2/2 increased work of breathing Anxiety - c/w Alprazolam HTN - BP well controlled - c/w HCTZ GERD - c/w Protonix DVT prophylaxis - c/w Heparin Disposition: - Awaiting clinical improvement VS,Fishbone, I+O VS, Fishbone, I+O Laboratory Tests 07/11/18 10:22 Red Blood Count 4.25 L, Mean Corpuscular Volume 102.4 H, Mean Corpuscular Hemoglobin 35.5 H, Mean Corpuscular Hemoglobin Concent 34.7, Red Cell Distribution Width 13.6, Calcium Level 8.7 Vital Signs Date Time Temp Pulse Resp B/P (MAP) Pulse Ox O2 Delivery O2 Flow Rate FiO2 07/11/18 08:02 97.0 84 20 144/96 (112) 92 10.0 07/11/18 06:00 30 07/08/18 20:50 Nasal Cannula I&O- Last 24 Hours up to 6 AM 07/11/18 06:00 Intake Total 1020 ml Output Total 2775 ml Balance -1755 ml SRI CONCEPCION MD Jul 11, 2018 11:23
[2018-07-11] MEDS: guaiFENesin ER 600 MG TAB PO PRN (16:58)
[2018-07-12] VITALS (24 sets, daily range): BP systolic 128–147; BP diastolic 69–85; O2SAT 93–98
[2018-07-12] MEDS: methylPREDNISolone INJ 40 MG/1 ML VIAL (J2920) IV SCH ×3 (00:02→20:34)
[2018-07-12] MEDS: IPRATROPIUM 0.5MG/ALBUTEROL 2.5MG INH SOL UD 3ML (DUONEB)(J7620) NEB SCH ×5 (04:25→20:17)
[2018-07-12] MEDS: SLF 3 ML SYR IV SCH ×3 (06:00→20:35)
[2018-07-12] MEDS: LevoFLOXacin 500 MG TABLET PO SCH (06:04)
[2018-07-12] MEDS: HEPARIN SOD (PORCINE) 5000 UNITS/ML VIAL SC SCH ×3 (06:05→20:34)
[2018-07-12] MEDS: traMADol 50 MG TAB PO PRN ×2 (06:05→14:39)
[2018-07-12] MEDS: TIOTROPIUM INHALER/CAPSULE (SPIRIVA) INH SCH (07:25)
[2018-07-12 08:05] LABS: BASO % 0.2 % (0.0-1.0); HEMATOCRIT 43.3 % (42.0-52.0); HEMOGLOBIN 15.4 g/dl (13.5-17.5); LYMPH # 0.3 10^3/uL (1.5-4.5); LYMPH % 2.7 % (24.0-44.0); MEAN CORPUSCULAR HEMOGLOBIN 36.2 pg (27.0-33.0); MEAN CORPUSCULAR HGB CONC 35.6 g/dl (32.0-36.5); MEAN CORPUSCULAR VOLUME 101.6 fl (80.0-96.0); MONO % 8.3 % (0.0-5.0); NEUTROPHILS # 10.9 10^3/uL (1.8-7.7); NEUTROPHILS % 87.8 % (36.0-66.0); PLATELET COUNT, AUTOMATED 153 10^3/uL (150-450); RED BLOOD COUNT 4.26 10^6/uL (4.30-6.10); WHITE BLOOD COUNT 12.4 10^3/uL (4.0-10.0)
[2018-07-12] MEDS: ALPRAZolam 0.5 MG TAB PO SCH ×2 (08:17→20:33)
[2018-07-12] MEDS: PANTOPRAZOLE 40MG TAB (PROTONIX) PO SCH (08:17)
[2018-07-12] MEDS: CETIRIZINE (ZyrTEC) 10 MG TAB PO SCH (08:17)
[2018-07-12] MEDS: BENZONATATE 100 MG CAP PO SCH ×2 (08:17→20:38)
[2018-07-12] MEDS: OSELTAMIVIR PHOSPHATE 75 MG CAP (TAMIFLU) PO SCH ×2 (08:17→20:33)
[2018-07-12] MEDS: hydroCHLOROthiazide 25 MG TAB PO SCH (08:17)
[2018-07-12] MEDS: VITAMIN D 1,000 INTERNATIONAL UNITS TABLET PO SCH (08:17)
[2018-07-12] MEDS: ASPIRIN 81 MG ENTERIC TAB PO SCH (08:18)
[2018-07-12] MEDS: SENOKOT S TAB PO SCH ×2 (08:18→20:33)
[2018-07-12] MEDS: FLUTICASONE PROP 0.05% NASAL SPRAY 16 GM (FLONASE) NARES SCH ×3 (08:18→21:00)
[2018-07-12 08:41] LABS: BLOOD UREA NITROGEN 29 MG/DL (7-18); CALCIUM LEVEL 8.4 MG/DL (8.5-10.1); CARBON DIOXIDE LEVEL 38 MEQ/L (21-32); CHLORIDE LEVEL 96 MEQ/L (98-107); CREATININE FOR GFR 0.75 MG/DL (0.70-1.30); GLOMERULAR FILTRATION RATE > 60.0 (>56); GLUCOSE, FASTING 111 MG/DL (70-100); MAGNESIUM LEVEL 2.5 MG/DL (1.8-2.4); POTASSIUM SERUM 3.9 MEQ/L (3.5-5.1); SODIUM LEVEL 139 MEQ/L (136-145)
--- NOTE | 2018-07-12 13:00 | IPNPDOC ---
Text Note Date of Service The patient was seen on 07/12/18. NOTE Subjective: Patient was seen and examined at the bedside. Patient is currently off VapoTherm and on nasal cannula. Denies any CP or palpitations. Reports improvement in breathing. Denies any N/V, abdominal pain, C/D. Objective: Vitals (See below) General: Lying in bed, no acute distress, comfortable, AAOx3 HEENT: NC, AT CVS: RRR, +S1S2 Lungs: Fair air entry b/l, auscultation is without any rhonchi, rales or wheezing Abdomen: Remains soft, nondistended, without tenderness Extremities: Again lower extremity revealed trace amounts of edema, - Calf tenderness Assessment and plan: Shortness of breath - likely 2/2 acute on chronic hypoxic respiratory failure - likely 2/2 A1AT deficiency superimposed with influenza A infection - s/p VapoTherm; has returned to baseline level of oxygen at 3 L nasal cannula - Physical without any adventitious lung sounds - Leukocytosis - likely 2/2 on steroids - Blood cultures 07/05: Negative; MRSA screen 07/06: Negative; Sputum culture 07/07: Serratia Marcescens / Haemophilus Parahaemolyticus - Respiratory panel 07/05: Influenza A H1-2008 - c/w Levaquin (Day #4; re: Sputum culture); c/w Oseltamivir (Day #7of7), s/p Vancomycin & Azithromycin - c/w Solumedrol; again, will reduce the frequency today A1AT deficiency - Patient receives infusion of A1 proteinase inhibitor every week (); receives 60mg/kg (~4250mg) - Patient will likely be discharged prior to his next infusion for ; can continue to receive his next scheduled infusion Abnormal liver function - likely 2/2 A1AT deficiency s/p Lactic acidosis - likely 2/2 increased work of breathing Anxiety - c/w Alprazolam HTN - BP well controlled - c/w HCTZ GERD - c/w Protonix DVT prophylaxis - c/w Heparin Disposition: - Awaiting clinical improvement - Anticipate discharge within next 24-48 hours VS,Fishbone, I+O VS, Fishbone, I+O Laboratory Tests 07/12/18 07:55 Red Blood Count 4.26 L, Mean Corpuscular Volume 101.6 H, Mean Corpuscular Hemoglobin 36.2 H, Mean Corpuscular Hemoglobin Concent 35.6, Red Cell Distribu tion Width 13.6, Neutrophils (%) (Auto) 87.8 H, Lymphocytes (%) (Auto) 2.7 L, Monocytes (%) (Auto) 8.3 H, Eosinophils (%) (Auto) 0.0, Basophils (%) (Auto) 0.2, Neutrophils # (Auto) 10.9 H, Lymphocytes # (Auto) 0.3 L, Monocytes # (Auto) 1.0 H, Eosinophils # (Auto) 0.0, Basophils # (Auto) 0.0, Calcium Level 8.4 L Vital Signs Date Time Temp Pulse Resp B/P (MAP) Pulse Ox O2 Delivery O2 Flow Rate FiO2 07/12/18 12:25 97.8 78 20 139/85 (103) 92 3.0 07/12/18 06:00 Nasal Cannula 07/11/18 16:00 30 I&O- Last 24 Hours up to 6 AM 07/12/18 06:00 Intake Total 1620 ml Output Total 1650 ml Balance -30 ml SRI CONCEPCION MD Jul 12, 2018 13:00
[2018-07-13] VITALS (27 sets, daily range): BP systolic 111–150; BP diastolic 61–99; O2SAT 92–98
[2018-07-13] MEDS: IPRATROPIUM 0.5MG/ALBUTEROL 2.5MG INH SOL UD 3ML (DUONEB)(J7620) NEB SCH ×7 (00:44→23:46)
[2018-07-13 04:52] LABS: BASO % 0.2 % (0.0-1.0); HEMOGLOBIN 15.1 g/dl (13.5-17.5); LYMPH # 0.3 10^3/uL (1.5-4.5); LYMPH % 2.1 % (24.0-44.0); MEAN CORPUSCULAR HEMOGLOBIN 35.9 pg (27.0-33.0); MEAN CORPUSCULAR HGB CONC 34.3 g/dl (32.0-36.5); MEAN CORPUSCULAR VOLUME 104.5 fl (80.0-96.0); MONO # 0.9 10^3/uL (0.0-0.8); MONO % 6.4 % (0.0-5.0); NEUTROPHILS % 90.5 % (36.0-66.0); PLATELET COUNT, AUTOMATED 168 10^3/uL (150-450); RED BLOOD COUNT 4.21 10^6/uL (4.30-6.10); WHITE BLOOD COUNT 13.2 10^3/uL (4.0-10.0)
[2018-07-13 05:15] LABS: BLOOD UREA NITROGEN 26 MG/DL (7-18); CALCIUM LEVEL 8.6 MG/DL (8.5-10.1); CARBON DIOXIDE LEVEL 36 MEQ/L (21-32); CHLORIDE LEVEL 95 MEQ/L (98-107); CREATININE FOR GFR 0.94 MG/DL (0.70-1.30); GLOMERULAR FILTRATION RATE > 60.0 (>56); GLUCOSE, FASTING 177 MG/DL (70-100); MAGNESIUM LEVEL 2.2 MG/DL (1.8-2.4); POTASSIUM SERUM 3.2 MEQ/L (3.5-5.1); SODIUM LEVEL 138 MEQ/L (136-145)
[2018-07-13] MEDS: LevoFLOXacin 500 MG TABLET PO SCH (05:32)
[2018-07-13] MEDS: HEPARIN SOD (PORCINE) 5000 UNITS/ML VIAL SC SCH ×3 (05:33→20:19)
[2018-07-13] MEDS: SLF 3 ML SYR IV SCH ×3 (05:33→22:00)
[2018-07-13] MEDS ORDERED: POTASSIUM CHLORIDE 10 MEQ SR TABLET PO ONE (07:30)
[2018-07-13] MEDS: TIOTROPIUM INHALER/CAPSULE (SPIRIVA) INH SCH (07:54)
[2018-07-13] MEDS: VITAMIN D 1,000 INTERNATIONAL UNITS TABLET PO SCH (08:34)
[2018-07-13] MEDS: ASPIRIN 81 MG ENTERIC TAB PO SCH (08:34)
[2018-07-13] MEDS: CETIRIZINE (ZyrTEC) 10 MG TAB PO SCH (08:34)
[2018-07-13] MEDS: hydroCHLOROthiazide 25 MG TAB PO SCH (08:34)
[2018-07-13] MEDS: PANTOPRAZOLE 40MG TAB (PROTONIX) PO SCH (08:34)
[2018-07-13] MEDS: SENOKOT S TAB PO SCH ×2 (08:34→20:19)
[2018-07-13] MEDS: ALPRAZolam 0.5 MG TAB PO SCH ×2 (08:35→20:19)
[2018-07-13] MEDS: BENZONATATE 100 MG CAP PO SCH ×2 (08:35→20:19)
[2018-07-13] MEDS: methylPREDNISolone INJ 40 MG/1 ML VIAL (J2920) IV SCH (08:35)
[2018-07-13] MEDS: FLUTICASONE PROP 0.05% NASAL SPRAY 16 GM (FLONASE) NARES SCH ×3 (08:36→20:20)
--- NOTE | 2018-07-13 15:09 | IPNPDOC ---
Text Note Date of Service The patient was seen on 07/13/18. NOTE Subjective: Patient was seen and examined at the bedside. Clinically is doing better. Denies any CP or palpitations. Reports improvement in SOB. Denies any N/V, abdominal pain, C/D, or dysuria. Objective: Vitals (See below) General: Lying in bed, no acute distress, comfortable, AAOx3 HEENT: NC, AT CVS: RRR, +S1S2 Lungs: Fair air entry b/l, no auscultated evidence of rhonchi / rales / wheezing Abdomen: Remains soft, nondistended, without tenderness Extremities: Again lower extremity revealed trace amounts of edema, - Calf tenderness Assessment and plan: Shortness of breath - likely 2/2 acute on chronic hypoxic respiratory failure - likely 2/2 A1AT deficiency superimposed with influenza A infection - s/p VapoTherm; has returned to baseline level of oxygen at 3 L nasal cannula - Physical without any adventitious lung sounds - Leukocytosis - likely 2/2 on steroids - Blood cultures 07/05: Negative; MRSA screen 07/06: Negative; Sputum culture 07/07: Serratia Marcescens / Haemophilus Parahaemolyticus - Respiratory panel 07/05: Influenza A H1-2008 - c/w Levaquin (Day #5; re: Sputum culture); c/w Oseltamivir (Day #7of7), s/p Vancomycin & Azithromycin - Started Prednisone; Will DC Solumedrol A1AT deficiency - Patient receives infusion of A1 proteinase inhibitor every week (); receives 60mg/kg (~4250mg) - Patient will likely be discharged prior to his next infusion for - Can continue to receive his next scheduled infusion Abnormal liver function - likely 2/2 A1AT deficiency s/p Lactic acidosis - likely 2/2 increased work of breathing Anxiety - c/w Alprazolam HTN - BP well controlled - c/w HCTZ GERD - c/w Protonix DVT prophylaxis - c/w Heparin Disposition: - Awaiting PT clearance - Anticipate discharge within next 24-48 hours VS,Fishbone, I+O VS, Fishbone, I+O Laboratory Tests 07/13/18 04:36 Red Blood Count 4.21 L, Mean Corpuscular Volume 104.5 H, Mean Corpuscular Hemoglobin 35.9 H, Mean Corpuscular Hemoglobin Concent 34.3, Red Cell Distribution Width 13.6, Neutrophils (%) (Auto) 90.5 H, Lymphocytes (%) (Auto) 2.1 L, Monocytes (%) (Auto) 6.4 H, Eosinophils (%) (Auto) 0.0, Basophils (%) (Auto) 0.2, Neutrophils # (Auto) 12.0 H, Lymphocytes # (Auto) 0.3 L, Monocytes # (Auto) 0.9 H, Eosinophils # (Auto) 0.0, Basophils # (Auto) 0.0, Calcium Level 8.6 Vital Signs Date Time Temp Pulse Resp B/P (MAP) Pulse Ox O2 Delivery O2 Flow Rate FiO2 07/13/18 12:28 3.0 07/13/18 12:00 98.5 89 18 125/88 (100) 91 07/13/18 04:00 Nasal Cannula 07/11/18 16:00 30 I&O- Last 24 Hours up to 6 AM 07/13/18 06:00 Intake Total 1220 ml Output Total 1170 ml Balance 50 ml SRI CONCEPCION MD Jul 13, 2018 15:09
[2018-07-13] MEDS ORDERED: predniSONE 20 MG TAB PO ONE (18:00)
[2018-07-13] MEDS: traMADol 50 MG TAB PO PRN (20:27)
[2018-07-14] VITALS: O2SAT 94
[2018-07-14 02:00] VITALS: O2SAT 96
[2018-07-14] MEDS: traMADol 50 MG TAB PO PRN (03:38)
[2018-07-14] MEDS: IPRATROPIUM 0.5MG/ALBUTEROL 2.5MG INH SOL UD 3ML (DUONEB)(J7620) NEB SCH ×4 (03:51→15:23)
[2018-07-14 04:00] VITALS: BP 130/83; O2SAT 94
[2018-07-14] MEDS: HEPARIN SOD (PORCINE) 5000 UNITS/ML VIAL SC SCH ×2 (05:34→13:06)
[2018-07-14] MEDS: SLF 3 ML SYR IV SCH ×2 (05:35→13:06)
[2018-07-14] MEDS: LevoFLOXacin 500 MG TABLET PO SCH (05:35)
[2018-07-14 05:46] LABS: BASO % 0.2 % (0.0-1.0); HEMATOCRIT 41.7 % (42.0-52.0); HEMOGLOBIN 14.4 g/dl (13.5-17.5); LYMPH # 0.3 10^3/uL (1.5-4.5); LYMPH % 2.1 % (24.0-44.0); MEAN CORPUSCULAR HEMOGLOBIN 35.1 pg (27.0-33.0); MEAN CORPUSCULAR HGB CONC 34.5 g/dl (32.0-36.5); MEAN CORPUSCULAR VOLUME 101.7 fl (80.0-96.0); MONO % 8.1 % (0.0-5.0); NEUTROPHILS # 11.4 10^3/uL (1.8-7.7); NEUTROPHILS % 88.5 % (36.0-66.0); PLATELET COUNT, AUTOMATED 165 10^3/uL (150-450); WHITE BLOOD COUNT 12.9 10^3/uL (4.0-10.0)
[2018-07-14 06:06] LABS: BLOOD UREA NITROGEN 27 MG/DL (7-18); CALCIUM LEVEL 8.6 MG/DL (8.5-10.1); CARBON DIOXIDE LEVEL 34 MEQ/L (21-32); CHLORIDE LEVEL 100 MEQ/L (98-107); GLOMERULAR FILTRATION RATE > 60.0 (>56); GLUCOSE, FASTING 142 MG/DL (70-100); MAGNESIUM LEVEL 2.2 MG/DL (1.8-2.4); POTASSIUM SERUM 3.8 MEQ/L (3.5-5.1); SODIUM LEVEL 139 MEQ/L (136-145)
[2018-07-14] MEDS: TIOTROPIUM INHALER/CAPSULE (SPIRIVA) INH SCH (07:01)
[2018-07-14 08:00] VITALS: BP 127/86
[2018-07-14] MEDS: ALPRAZolam 0.5 MG TAB PO SCH (08:18)
[2018-07-14] MEDS: CETIRIZINE (ZyrTEC) 10 MG TAB PO SCH (08:18)
[2018-07-14] MEDS: FLUTICASONE PROP 0.05% NASAL SPRAY 16 GM (FLONASE) NARES SCH ×2 (08:18→15:24)
[2018-07-14] MEDS: PANTOPRAZOLE 40MG TAB (PROTONIX) PO SCH (08:18)
[2018-07-14] MEDS: VITAMIN D 1,000 INTERNATIONAL UNITS TABLET PO SCH (08:18)
[2018-07-14] MEDS: SENOKOT S TAB PO SCH (08:19)
[2018-07-14] MEDS: ASPIRIN 81 MG ENTERIC TAB PO SCH (08:19)
[2018-07-14] MEDS: hydroCHLOROthiazide 25 MG TAB PO SCH (08:19)
[2018-07-14] MEDS: BENZONATATE 100 MG CAP PO SCH (08:19)
[2018-07-14] MEDS ORDERED: predniSONE 20 MG TAB PO SCH (09:00)
[2018-07-14] MEDS ORDERED: TRAM50TA2 PO (10:39)
[2018-07-14] MEDS ORDERED: BENZ-18 PO (10:39)
[2018-07-14] MEDS ORDERED: LEVA1TAB2 PO (10:39)
[2018-07-14] MEDS ORDERED: PRED10TA2 PO (10:43)
--- NOTE | 2018-07-15 13:40 | DSES ---
DATE OF ADMISSION: 07/05/2018 DATE OF DISCHARGE: 07/14/2018 DISCHARGE DIAGNOSIS: Influenza A. SECONDARY DIAGNOSES: 1. Serratia and Haemophilus pneumonia. 2. Alpha 1 antitrypsin deficiency. 3. Lactic acidosis. 4. Anxiety. 5. Hypertension. 6. Gastroesophageal reflux disease (GERD). 7. Acute on chronic hypoxic respiratory failure. HOSPITAL COURSE: The patient is a 57-year-old man who was admitted with acute on chronic hypoxic respiratory failure. His baseline is 3 liters oxygen, related to alpha 1 antitrypsin deficiency, followed closely by Dr. Hood in the outpatient setting, chronic prednisone dependence as well, alternating with 20 mg and 10 mg every other day. He presented significantly short of breath and was found to have influenza H1 positive. Sputum culture eventually did return positive for Serratia and Haemophilus parainfluenza as well. He completed a course of Tamiflu while here. He has also had 6 days of levofloxacin orally as well. He did require significant oxygen and had worsening of his symptoms of baseline shortness of breath and hypoxic respiratory failure, which did improve progressively. At this time, he has been cleared by physical therapy (PT). He is at his baseline respiratory status and is doing much better. OBJECTIVE: VITAL SIGNS: Temperature 97.1, pulse 68, respiratory rate 22, blood pressure 127/86, oxygen saturation 96% on 3 liters. GENERAL: He is a frail, elderly, man who appears older than his stated age, sitting up on the edge of his bed and taking his medications. He does not appear to be in any acute distress. HEENT: Cranial nerves II through XII are grossly intact. CARDIOVASCULAR: S1, S2 regular. RESPIRATORY EXAM: He has a prolonged expiratory phase. ABDOMINAL EXAM: Benign. EXTREMITIES: No clubbing, cyanosis or edema. LABORATORY STUDIES: WBC 12.9, hemoglobin 14.4, platelet count is 165. Chemistry panel: Sodium 139, potassium 3.8, chloride 100, bicarbonate 34, BUN 27, creatinine 0.8. Microbiology: As outlined above. IMAGING: The patient had a duplex ultrasound that revealed no evidence of deep vein thrombosis (DVT). He did have bilateral popliteal fossa Sosa cysts. ASSESSMENT AND PLAN: This is a 57-year-old man with acute on chronic hypoxic respiratory failure secondary to influenza A on top of alpha 1 antitrypsin deficiency. 1. Influenza A. The patient is status post . He has now returned to his baseline respiratory status. He has been cleared by physical therapy (PT) today. His leukocytosis persists, likely related to steroids. He was continued on steroids. He was on Solu-Medrol, but has now been tapered to prednisone orally daily, which he will continue tapering down upon discharge until he returns to his baseline of 20 mg and 10 mg alternating daily. Today is also day 6 of levofloxacin related to culture positive sputum cultures related to possible pneumonia. He has finished the course of Tamiflu while hospitalized. The patient did have benefit from Tessalon Perles. 2. Alpha 1 antitrypsin deficiency. He is on alpha 1 protein RAFA inhibitor every week. He will continue his infusion this week. He was advised to followup with Dr. Hood as soon as possible. He is at his baseline respiratory status. 3. Abnormal liver function tests related to his alpha 1 antitrypsin deficiency. 4. Lactic acidosis secondary to increased work of breathing. 5. Anxiety. Continue with alprazolam. 6. Hypertension. Well controlled with hydrochlorothiazide. 7. Gastroesophageal reflux disease (GERD). He is on Protonix. 8. Deep vein thrombosis (DVT) prophylaxis. He is on heparin. 9. Osteoarthritis. The patient was on Tramadol while hospitalized. DISPOSITION: The patient is being discharged home. He is at his functional baseline. His clinical syndrome has improved. He is to followup with his primary care provider within 7 days, followup with Dr. Hood as soon as possible. His activity and diet are as tolerated. Return to the emergency room if symptoms worsen. MEDICATIONS: At the time of discharge: - benzonatate 120 mg twice a day - levofloxacin 500 mg daily for three tablets - prednisone 10 mg four tablets for 3 days, three tablets for 3 days, two tablets for 3 days and then resume alternating home dosing - tramadol 50 mg every 6 hours as needed for pain, quantity 12 - Ventolin HFA 108 mcg two puffs every 4 hours as needed for shortness of breath - DuoNeb 2.5 mg - albuterol sulfate 2 mg inhaled twice a day - Combivent 200/100 one puff four times daily - alprazolam 0.5 mg twice a day - Aralast 1000 mg weekly every - aspirin 81 mg daily - Zyrtec 10 mg daily - vitamin D3 2000 units daily - Flonase one spray in both nares three times a day - Breo Ellipta 100/25 mcg one puff inhaled daily - hydrochlorothiazide 25 mg daily - oyster shell calcium and D 500/400 one tablet daily - Daliresp 500 mcg daily - normal saline nasally four times daily - Spiriva Respimat 2.5 mcg inhaled every morning The patient is advised to hold his Captopril, potassium and his regular prednisone dosing for the short term. Greater than 30 minutes was spent organizing a safe disposition. All questions were answered to the patient's satisfaction. Greater than 20 minutes was spent at bedside.
== END 2018-07-14 16:38 | disposition home health service (06) | DRG 140 ==
LOC: M ED 13:43 → M ED INP 16:04 → M PCU 21:15
PROVIDERS: ADMIT Internal Medicine; ATTEND Internal Medicine
DX: J44.1 Chronic obstructive pulmonary disease with (acute) exacerbation (principal); J96.21 Acute and chronic respiratory failure with hypoxia; J14 Pneumonia due to Hemophilus influenzae; J15.6 Pneumonia due to other Gram-negative bacteria; E87.2 Acidosis; E88.01 Alpha-1-antitrypsin deficiency; J10.1 Influenza due to other identified influenza virus with other respiratory manifestations; K21.9 Gastro-esophageal reflux disease without esophagitis; I10 Essential (primary) hypertension; Z79.52 Long term (current) use of systemic steroids; F41.9 Anxiety disorder, unspecified; M19.90 Unspecified osteoarthritis, unspecified site; Z79.899 Other long term (current) drug therapy; Z79.82 Long term (current) use of aspirin

== ENCOUNTER 2018-10-14 08:31 | Outpatient (RCR) | payer OTHER ==
[~2018-10-14 08:31] MED LIST changes: -ASPI1TAB PO; +ASPI81TA26 PO; +BENZ-18 PO; -DILT180C74 PO; +DILT1CAP3 PO; +FLON1SPR NARES; +OYST1TAB5 PO; +POTA1TAB23 PO; +TRAM50TA2 PO; +VITA200038 PO
== END 2018-10-23 ==
LOC: M PR 08:31
PROVIDERS: ATTEND Internal Medicine Pulmonary Disease
DX: Z79.52 Long term (current) use of systemic steroids (principal)

== ENCOUNTER 2018-11-20 09:08 | Outpatient (RCR) | payer OTHER | END 2018-11-22 | LOC: M PR 09:08 | PROVIDERS: ATTEND Internal Medicine Pulmonary Disease | DX: Z79.52 Long term (current) use of systemic steroids (principal) ==

== ENCOUNTER → 2019-02-16 | Outpatient (CLI) | payer OTHER ==
--- NOTE | 2019-02-18 19:42 | SLEEPCENT ---
DATE OF PROCEDURE: 02/16/2019 ORDERED BY : Dr. Justino Hood Nocturnal polysomnography was performed for evaluation of sleep physiology in this patient with a history of excessive somnolence and nonrestorative sleep. 8 hours and 46 minutes of data were reviewed. There were 250.5 minutes of sleep identified. Sleep latency was prolonged at 70 minutes. Rapid eye movement (REM) latency was normal at 77.5 minutes. Sleep architecture initially was good. There was a period of wake between 1:00 and 3:15 resulting in reduced sleep efficiency of 48.3%. Some fragmentation was seen late in the study. The patient's electrocardiogram showed a sinus rhythm with premature ventricular contractions (PVCs). Average heart rate 70 beats per minute. EEG showed reasonably normal waveforms for awake and sleep. There were only nine respiratory events identified of 10 seconds in duration or greater for an apnea-hypopnea index within normal limits of 2.2. Significant snoring was, however, noted and respiratory related arousal index was 5.5. There was some limb activity; only one train of 30 events. Limb movement arousal index was borderline at 8.4, oxygen saturations remained 90% plus throughout the study. IMPRESSION: Normal nocturnal polysomnography with snoring.
== END ==
LOC: M SLEEP 19:20
PROVIDERS: ATTEND Internal Medicine Pulmonary Disease
DX: R06.83 Snoring (principal)

== ENCOUNTER → 2020-12-01 | Outpatient (CLI) | payer OTHER ==
[~2020-12-01] MED LIST changes: +ASPI-569 PO; -ASPI81TAEC PO; +HYDR-3490 PO; -HYDR25TAB PO
== END ==
LOC: M LAB 07:34 → M RAD 07:34
PROVIDERS: ATTEND Nurse Practitioner Family
DX: J44.9 Chronic obstructive pulmonary disease, unspecified (principal); Z99.81 Dependence on supplemental oxygen

== ENCOUNTER 2022-07-01 08:32 | Emergency (ER) | payer OTHER ==
[~2022-07-01] VITALS: Ht 175.3 cm; Wt 65.5 kg
[~2022-07-01 08:32] MED LIST changes: +ALBU2.5V10 INH; -ALBU83IN INH
[2022-07-01] MEDS ORDERED: NORCO, ANEXSIA 5/325MG TABLET (HYDROcodone/ACETAMINOPHEN) PO ONE (09:15)
[2022-07-01 09:29] LABS: BASO # 0.1 10^3/uL (0.0-0.2); BASO % 0.8 % (0.0-1.0); EOS # 0.2 10^3/uL (0.0-0.5); EOS % 3.2 % (0.0-3.0); HEMOGLOBIN 15.1 g/dl (13.5-17.5); LYMPH % 14.4 % (24.0-44.0); MEAN CORPUSCULAR HEMOGLOBIN 33.6 pg (27.0-33.0); MEAN CORPUSCULAR HGB CONC 33.6 g/dl (32.0-36.5); MEAN CORPUSCULAR VOLUME 100.2 fl (80.0-96.0); MONO # 0.9 10^3/uL (0.0-0.8); MONO % 13.2 % (2.0-8.0); NEUTROPHILS # 4.5 10^3/uL (1.5-8.5); NEUTROPHILS % 68.1 % (36.0-66.0); PLATELET COUNT, AUTOMATED 202 10^3/uL (150-450); RED BLOOD COUNT 4.49 10^6/uL (4.30-6.10); WHITE BLOOD COUNT 6.6 10^3/uL (4.0-10.0)
[2022-07-01 09:41] LABS: INR 1.09; PROTHROMBIN TIME 14.3 SECONDS (12.5-14.5)
[2022-07-01 09:51] LABS: ALBUMIN 3.2 G/DL (3.2-5.2); ALKALINE PHOSPHATASE 160 U/L (46-116); ALT/SGPT 20 U/L (7.0-40); AST/SGOT 32 U/L (<34); BILIRUBIN,DIRECT 0.5 MG/DL (<0.4); BILIRUBIN,TOTAL 1.6 MG/DL (0.3-1.2); BLOOD UREA NITROGEN 25 MG/DL (9-23); CALCIUM LEVEL 9.1 MG/DL (8.3-10.6); CARBON DIOXIDE LEVEL 31 MMOL/L (20-31); CHLORIDE LEVEL 104 MMOL/L (98-107); CK-MB VALUE MASS 1.9 NG/ML (<3.6); CPK CREATINE PHOSPHOKINASE 104 U/L (46-171); CREATININE FOR GFR 0.68 MG/DL (0.70-1.30); GLOMERULAR FILTRATION RATE > 60.0 (>49); GLUCOSE, FASTING 95 MG/DL (74-106); MB/CK RELATIVE INDEX 1.82 (< OR =4); POTASSIUM SERUM 3.5 MMOL/L (3.5-5.1); SODIUM LEVEL 142 MMOL/L (136-145); TOTAL PROTEIN 6.2 G/DL (5.7-8.2)
[2022-07-01 09:52] LABS: THYROXINE (T4) 13.2 UG/DL (4.5-10.9)
[2022-07-01 09:53] LABS: THYROID STIMULATING HORMONE 1.359 uIU/ML (0.55-4.78)
[2022-07-01] MEDS ORDERED: HYDR-3713 PO (15:16)
[2022-07-01 15:55] VITALS: BP 160/80
== END 2022-07-01 16:08 | disposition home or self-care (01) ==
LOC: M ED 08:32
DX: S22.050A Wedge compression fracture of T5-T6 vertebra, initial encounter for closed fracture (principal); E02 Subclinical iodine-deficiency hypothyroidism; I49.3 Ventricular premature depolarization; I44.4 Left anterior fascicular block; J44.9 Chronic obstructive pulmonary disease, unspecified; J45.909 Unspecified asthma, uncomplicated; I10 Essential (primary) hypertension; F10.10 Alcohol abuse, uncomplicated; Z87.891 Personal history of nicotine dependence; Z88.0 Allergy status to penicillin; Z79.52 Long term (current) use of systemic steroids; Z79.51 Long term (current) use of inhaled steroids; Z79.899 Other long term (current) drug therapy; Z79.2 Long term (current) use of antibiotics; Z79.82 Long term (current) use of aspirin; Z79.891 Long term (current) use of opiate analgesic

== ENCOUNTER → 2022-08-06 | Outpatient (CLI) | payer OTHER ==
[~2022-08-06] MED LIST changes: -ALBU2TA PO; +ALBU2TAB13 PO; +HYDR-3713 PO
== END ==
LOC: M SOG 07:58
PROVIDERS: ATTEND Orthopaedic Surgery
DX: M54.6 Pain in thoracic spine (principal)

== ENCOUNTER → 2022-10-16 | Outpatient (CLI) | payer OTHER ==
[~2022-10-16] MED LIST changes: +DILT180C38 PO; -DILT1CAP3 PO; +POTA-298 PO; -POTA1TAB14 PO
== END ==
LOC: M SOG 07:55
PROVIDERS: ATTEND Orthopaedic Surgery
DX: Z53.9 Procedure and treatment not carried out, unspecified reason (principal)

== ENCOUNTER → 2022-11-05 | Outpatient (CLI) | payer OTHER | LOC: M RAD 09:26 | PROVIDERS: ATTEND Internal Medicine Pulmonary Disease | DX: E88.01 Alpha-1-antitrypsin deficiency (principal); J44.9 Chronic obstructive pulmonary disease, unspecified; M85.80 Other specified disorders of bone density and structure, unspecified site ==

== ENCOUNTER → 2025-01-11 | Outpatient (CLI) | payer MEDICARE ==
[~2025-01-11] MED LIST changes: -ADV500INH INH; +ADVA1AER10 INH; -ALBU1TAB4 PO; +ALBU4TAB9 PO
== END ==
LOC: M RAD 09:50
PROVIDERS: ATTEND Internal Medicine Pulmonary Disease
DX: E88.01 Alpha-1-antitrypsin deficiency (principal)

== ENCOUNTER 2025-05-18 17:41 | Inpatient (IN) | payer MEDICARE ==
[~2025-05-18] VITALS: Ht 175.3 cm; Wt 66.8 kg
[2025-05-18 18:33] LABS: BASO # 0.0 10^3/uL (0.0-0.2); BASO % 0.2 % (0.0-1.0); EOS # 0.0 10^3/uL (0.0-0.5); EOS % 0.2 % (0.0-3.0); LYMPH # 0.2 10^3/uL (1.5-5.0); LYMPH % 1.4 % (24.0-44.0); MONO # 0.8 10^3/uL (0.0-0.8); MONO % 4.8 % (2.0-8.0); NEUTROPHILS # 16.1 10^3/uL (1.5-8.5); NEUTROPHILS % 93.0 % (36.0-66.0); PLATELET COUNT, AUTOMATED 140 10^3/uL (150-450)
[2025-05-18 18:44] LABS: ALT/SGPT 44 U/L (7.0-40); AST/SGOT 39 U/L (<34); CALCIUM LEVEL 8.8 MG/DL (8.3-10.6); CARBON DIOXIDE LEVEL 34 MMOL/L (20-31); CHLORIDE LEVEL 105 MMOL/L (98-107); CREATININE FOR GFR 0.87 MG/DL (0.70-1.30); GLOMERULAR FILTRATION RATE > 90.0 (>49); POTASSIUM SERUM 4.2 MMOL/L (3.5-5.1); SODIUM LEVEL 148 MMOL/L (136-145)
[2025-05-18] MEDS: IPRATROPIUM 0.5 MG/ALBUTEROL 2.5 MG INH SOL UD 3 ML NEB PRN (19:12)
[2025-05-18] MEDS ORDERED: ISOVUE-370 76% 100 ML VIAL As Ordered ONE (19:44)
[2025-05-18] MEDS: DOCUSATE SODIUM 100 MG CAPSULE PO SCH (21:00)
[2025-05-18] MEDS ORDERED: TRAM50TA2 PO (21:35)
[2025-05-18] MEDS ORDERED: ENSI3AMP INH (21:35)
[2025-05-18] MEDS ORDERED: BUDE0.5S6 NEB (21:35)
[2025-05-18] MEDS ORDERED: INCR1INH IN (21:35)
[2025-05-18] MEDS ORDERED: POTA99TA14 PO (21:35)
[2025-05-18] MEDS ORDERED: CETI-25 PO (21:35)
[2025-05-18] MEDS ORDERED: PARO20TA3 PO (21:35)
[2025-05-18] MEDS ORDERED: HOME MED LIST COMPLETE! XX SCH (21:40)
[2025-05-18] MEDS ORDERED: MOM 30 ML SUSPENSION UDC PO PRN (22:00)
[2025-05-18] MEDS ORDERED: traMADol 50 MG TAB PO PRN (22:00)
[2025-05-18] MEDS ORDERED: MAALOX 30 ML SUSP *UDC PO PRN (22:00)
[2025-05-18] MEDS ORDERED: ACETAMINOPHEN 325 MG TAB PO PRN (22:00)
[2025-05-18] MEDS: NS (Normal Saline) 0.9% 1,000 ML IV SCH (22:49)
[2025-05-18] MEDS: AZITHROMYCIN INJ 500 MG, VIAL MATE ADAPTER 1 EACH in NS 250 ML IV SCH (22:49)
[2025-05-19] MEDS: IPRATROPIUM 0.5 MG/ALBUTEROL 2.5 MG INH SOL UD 3 ML NEB ONE (00:31)
[2025-05-19 03:07] VITALS: BP 126/86; TEMP 98.6; O2SAT 93
[2025-05-19] MEDS: IPRATROPIUM 0.5 MG/ALBUTEROL 2.5 MG INH SOL UD 3 ML NEB SCH (03:10)
[2025-05-19] MEDS: NS (Normal Saline) 0.9% 1,000 ML IV ONE (03:38)
[2025-05-19] MEDS ORDERED: NS (Normal Saline) 0.9% 1,000 ML IV SCH (05:25)
[2025-05-19 06:02] VITALS: BP 130/62; TEMP 97.9; O2SAT 99
[2025-05-19 06:48] LABS: PLATELET COUNT, AUTOMATED 106 10^3/uL (150-450)
[2025-05-19 07:52] LABS: ALT/SGPT 37 U/L (7.0-40); AST/SGOT 29 U/L (<34); CALCIUM LEVEL 8.0 MG/DL (8.3-10.6); CARBON DIOXIDE LEVEL 28 MMOL/L (20-31); CHLORIDE LEVEL 107 MMOL/L (98-107); CREATININE FOR GFR 0.57 MG/DL (0.70-1.30); GLOMERULAR FILTRATION RATE > 90.0 (>49); MAGNESIUM LEVEL 2.0 MG/DL (1.8-2.4); POTASSIUM SERUM 4.0 MMOL/L (3.5-5.1); SODIUM LEVEL 144 MMOL/L (136-145)
[2025-05-19] MEDS: cefTRIAXone SOD 1 GM in DEXTROSE 5% (D5W) ADV/MINI-BAG 50 ML IV SCH (07:59)
[2025-05-19] MEDS ORDERED: COMBIVENT RESPIMAT 100-20 MCG INHALER 4 GM INH SCH (08:00)
[2025-05-19] MEDS: TIOTROPIUM BROM 2.5MCG/ACTUATION 4GM INH INH SCH (08:00)
[2025-05-19] MEDS: FLUTICASONE PROPIONATE 0.05% NASAL SPRAY 16 GM NARES SCH (09:23)
[2025-05-19] MEDS: SODIUM CHLORIDE NASAL 0.65% SPRAY BTL (OCEAN) SCH (09:24)
[2025-05-19] MEDS: ASPIRIN 81 MG ENTERIC TABLET PO SCH (09:25)
[2025-05-19] MEDS: PANTOPRAZOLE 40MG VIAL IV SCH (09:25)
[2025-05-19] MEDS: CETIRIZINE 10 MG TAB PO SCH (09:26)
[2025-05-19] MEDS: ALPRAZolam 0.5 MG TAB PO SCH (09:26)
[2025-05-19] MEDS: PARoxetine 20MG TABLET PO SCH (09:26)
[2025-05-19] MEDS: HEPARIN SOD 5000 UNITS/ML 1 ML VIAL/SYRINGE SC SCH (09:27)
[2025-05-19] MEDS: LR 1,000 ML IV ONE (10:12)
[2025-05-19 14:00] VITALS: BP 138/73; TEMP 98.1; O2SAT 99
[2025-05-19 14:32] LABS: KETONE, URINE AUTO RFX NEGATIVE (NEGATIVE); LEUKOCYTE ESTERASE UR AUTO RFX NEGATIVE (NEGATIVE); MUCUS, URINE RFX SMALL (NEGATIVE); NITRITE, URINE AUTO RFX NEGATIVE (NEGATIVE); RBC, URINE AUTO RFX 0 /HPF (0-3); SQUAM EPITHELIAL CELL UR AURFX 0 /HPF (0-6); WBC, URINE AUTO RFX 0 /HPF (0-3)
[2025-05-19 21:07] VITALS: BP 153/76; TEMP 98.1; O2SAT 96
[2025-05-19] MEDS: BUDESONIDE 0.5 MG/2 ML INHALATION SUSPENSION NEB SCH (21:18)
[2025-05-19] MEDS: ADVAIR HFA 230/21 MCG INHALER INH SCH (21:18)
[2025-05-19 21:52] LABS: ABG BASE EXCESS -1.3 (-2.0-2.0); ABG HCO3 23.7 MMOL/L (22.0-26.0); ABG O2 SATURATION 96.9 % (95.0-99.0); ABG PARTIAL PRESSURE CO2 40.8 mmHg (35.0-45.0); ABG PARTIAL PRESSURE O2 90.2 mmHg (75.0-100.0); ABG STANDARD HCO3 23.4 MMOL/L. (22.0-26.0); ABG TOTAL CO2 25.0 MMOL/L (23.0-31.0); ABG pH (ARTERIAL) 7.382 UNITS (7.350-7.450)
[2025-05-20 06:25] VITALS: BP 126/81; TEMP 98.3; O2SAT 98
[2025-05-20 07:16] VITALS: O2SAT 95
[2025-05-20 08:37] LABS: PLATELET COUNT, AUTOMATED 107 10^3/uL (150-450)
[2025-05-20 08:43] LABS: CALCIUM LEVEL 8.1 MG/DL (8.3-10.6); CARBON DIOXIDE LEVEL 32 MMOL/L (20-31); CHLORIDE LEVEL 106 MMOL/L (98-107); CREATININE FOR GFR 0.65 MG/DL (0.70-1.30); GLOMERULAR FILTRATION RATE > 90.0 (>49); MAGNESIUM LEVEL 2.0 MG/DL (1.8-2.4); PHOSPHORUS LEVEL 2.8 MG/DL (2.4-5.1); POTASSIUM SERUM 4.4 MMOL/L (3.5-5.1); SODIUM LEVEL 144 MMOL/L (136-145)
[2025-05-20] MEDS: ALPRAZolam 0.5 MG TAB PO ONE (10:54)
[2025-05-20] MEDS ORDERED: MORPHINE SULFATE ORAL SOLN 10 MG/5 ML SL PRN (11:15)
[2025-05-20] MEDS ORDERED: PNEUMOC 21-VAL CONJ-DIP CRM/PF 0.5 ML SYRINGE IM.IMMUN ONE (12:00)
[2025-05-20 13:45] LABS: INR 1.15
[2025-05-20 14:46] VITALS: BP 117/91; TEMP 98.3; O2SAT 93
[2025-05-20 20:03] VITALS: BP 146/82; TEMP 99.4; O2SAT 90
[2025-05-20] MEDS: AZITHROMYCIN 250 MG TABLET PO SCH (21:06)
[2025-05-20] MEDS: ALPRAZolam 0.5 MG TAB PO SCH (21:06)
[2025-05-21 05:27] VITALS: BP 122/70; TEMP 98.6; O2SAT 97
[2025-05-21 08:06] LABS: PLATELET COUNT, AUTOMATED 105 10^3/uL (150-450)
[2025-05-21 08:32] LABS: CALCIUM LEVEL 8.3 MG/DL (8.3-10.6); CARBON DIOXIDE LEVEL 32 MMOL/L (20-31); CHLORIDE LEVEL 107 MMOL/L (98-107); CREATININE FOR GFR 0.60 MG/DL (0.70-1.30); GLOMERULAR FILTRATION RATE > 90.0 (>49); MAGNESIUM LEVEL 2.2 MG/DL (1.8-2.4); PHOSPHORUS LEVEL 3.4 MG/DL (2.4-5.1); POTASSIUM SERUM 4.2 MMOL/L (3.5-5.1); SODIUM LEVEL 146 MMOL/L (136-145)
[2025-05-21] MEDS: SODIUM CHLORIDE HYPERTONIC 3% 4ML NEB SOL INH SCH (14:30)
[2025-05-21 14:33] VITALS: BP 120/66; TEMP 98.2; O2SAT 94
[2025-05-21] MEDS: CEFEPIME HCL 2 GM in DEXTROSE 5% (D5W) ADV/MINI-BAG 50 ML IV SCH (15:03)
[2025-05-21 20:34] VITALS: BP 153/88; TEMP 98.3; O2SAT 98
[2025-05-22] VITALS (10 sets, daily range): BP systolic 127–140; BP diastolic 60–87; TEMP 97.6–98.3; O2SAT 90–98
[2025-05-22 06:22] LABS: PLATELET COUNT, AUTOMATED 108 10^3/uL (150-450)
[2025-05-22 06:49] LABS: CALCIUM LEVEL 8.0 MG/DL (8.3-10.6); CARBON DIOXIDE LEVEL 36 MMOL/L (20-31); CHLORIDE LEVEL 105 MMOL/L (98-107); CREATININE FOR GFR 0.63 MG/DL (0.70-1.30); GLOMERULAR FILTRATION RATE > 90.0 (>49); MAGNESIUM LEVEL 2.3 MG/DL (1.8-2.4); PHOSPHORUS LEVEL 3.1 MG/DL (2.4-5.1); POTASSIUM SERUM 4.3 MMOL/L (3.5-5.1); SODIUM LEVEL 146 MMOL/L (136-145)
[2025-05-23] VITALS (19 sets, daily range): BP systolic 122–178; BP diastolic 56–92; TEMP 97.7–98.5; O2SAT 90–99
[2025-05-23 06:04] LABS: PLATELET COUNT, AUTOMATED 106 10^3/uL (150-450)
[2025-05-23 06:22] LABS: CALCIUM LEVEL 8.1 MG/DL (8.3-10.6); CARBON DIOXIDE LEVEL 35 MMOL/L (20-31); CHLORIDE LEVEL 108 MMOL/L (98-107); CREATININE FOR GFR 0.57 MG/DL (0.70-1.30); GLOMERULAR FILTRATION RATE > 90.0 (>49); MAGNESIUM LEVEL 2.1 MG/DL (1.8-2.4); PHOSPHORUS LEVEL 2.6 MG/DL (2.4-5.1); POTASSIUM SERUM 4.2 MMOL/L (3.5-5.1); SODIUM LEVEL 148 MMOL/L (136-145)
[2025-05-23] MEDS: D5W 1,000 ML IV SCH (08:17)
[2025-05-23] MEDS: FUROSEMIDE 40 MG/4 ML VIAL IV ONE (13:21)
[2025-05-23] MEDS ORDERED: ENSULIQ51 PO (19:17)
[2025-05-23] MEDS ORDERED: ENTER DRUG NAME HERE (PATIENT'S OWN MED) IV SCH (20:00)
[2025-05-24] VITALS (17 sets, daily range): BP systolic 115–149; BP diastolic 66–85; TEMP 97–98.6; O2SAT 64–99
[2025-05-24 06:44] LABS: PLATELET COUNT, AUTOMATED 102 10^3/uL (150-450)
[2025-05-24 07:22] LABS: CALCIUM LEVEL 8.4 MG/DL (8.3-10.6); CARBON DIOXIDE LEVEL 36 MMOL/L (20-31); CHLORIDE LEVEL 97 MMOL/L (98-107); CREATININE FOR GFR 0.62 MG/DL (0.70-1.30); GLOMERULAR FILTRATION RATE > 90.0 (>49); MAGNESIUM LEVEL 2.2 MG/DL (1.8-2.4); PHOSPHORUS LEVEL 3.2 MG/DL (2.4-5.1); POTASSIUM SERUM 4.3 MMOL/L (3.5-5.1); SODIUM LEVEL 140 MMOL/L (136-145)
[2025-05-24] MEDS: FUROSEMIDE 40 MG/4 ML VIAL IV SCH (10:50)
[2025-05-24] MEDS: SODIUM CHLORIDE HYPERTONIC 3% 4ML NEB SOL INH SCH (20:14)
[2025-05-25] VITALS (12 sets, daily range): BP systolic 118–139; BP diastolic 58–82; TEMP 97.4–98; O2SAT 90–98
[2025-05-25 05:05] LABS: PLATELET COUNT, AUTOMATED 109 10^3/uL (150-450)
[2025-05-25 05:35] LABS: CALCIUM LEVEL 8.5 MG/DL (8.3-10.6); CARBON DIOXIDE LEVEL 38 MMOL/L (20-31); CHLORIDE LEVEL 96 MMOL/L (98-107); CREATININE FOR GFR 0.70 MG/DL (0.70-1.30); GLOMERULAR FILTRATION RATE > 90.0 (>49); MAGNESIUM LEVEL 2.3 MG/DL (1.8-2.4); PHOSPHORUS LEVEL 3.8 MG/DL (2.4-5.1); POTASSIUM SERUM 3.9 MMOL/L (3.5-5.1); SODIUM LEVEL 141 MMOL/L (136-145)
[2025-05-25] MEDS ORDERED: HYDR-3363 PO (10:45)
[2025-05-25] MEDS ORDERED: LEVO75TAB PO (10:45)
[2025-05-25] MEDS ORDERED: FURO40TA2 PO (10:45)
[2025-05-25] MEDS ORDERED: ROLLMIS8 XX (10:45)
[2025-05-25] MEDS ORDERED: PRED10TA2 PO (10:45)
== END 2025-05-25 15:24 | disposition home health service (06) | DRG 190 ==
LOC: M ED 17:41 → M ED INP 17:42 → M MS5PR 05-19 02:39 → M PCU 05-22 13:19
PROVIDERS: ADMIT Student in an Organized Health Care Education/Training Program; ATTEND Internal Medicine
DX: J44.1 Chronic obstructive pulmonary disease with (acute) exacerbation (principal); J15.69 Pneumonia due to other Gram-negative bacteria; I50.33 Acute on chronic diastolic (congestive) heart failure; J96.11 Chronic respiratory failure with hypoxia; E87.20 Acidosis, unspecified; F32.A Depression, unspecified; I11.0 Hypertensive heart disease with heart failure; E78.5 Hyperlipidemia, unspecified; E88.01 Alpha-1-antitrypsin deficiency; R74.01 Elevation of levels of liver transaminase levels; K74.00 Hepatic fibrosis, unspecified; F41.8 Other specified anxiety disorders; Z87.891 Personal history of nicotine dependence; Z79.899 Other long term (current) drug therapy; Z79.82 Long term (current) use of aspirin; Z79.52 Long term (current) use of systemic steroids; Z88.0 Allergy status to penicillin; Z98.41 Cataract extraction status, right eye; Z98.42 Cataract extraction status, left eye